=== PATIENT | female | born 1950 | race African-American/Black ===

== ENCOUNTER 2016-09-04 16:33 | Inpatient (IN) | payer OTHER ==
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
[2016-09-04 17:02] VITALS: BMI 18.3
[2016-09-04] MEDS ORDERED: SODIUM CHLORIDE 0.9% 1000 ML INFUS.BAG IV PRN (17:08)
[2016-09-04] MEDS ORDERED: ACETAMINOPHEN 1000 MG/100 ML VIAL (NON FORMULARY) IVPB ONE (17:08)
[2016-09-04] MEDS ORDERED: PIPERACILLIN/TAZOB 3.375 GM/50 ML PRE-DOCKED IV ONE (17:09)
[2016-09-04 17:57] LABS: BASOPHIL 0.3 % (0-2.0); EOSINOPHIL 0.3 % (0-4.5); MCH 26.9 pg (25.7-33.7); MCHC 31.8 g/dl (32.0-36.0); MEAN CELL VOLUME 84.7 fl (80-96); MEAN PLT VOLUME 8.4 fl (7.5-11.1); NEUTROPHILS 89.3 % (42.8-82.8); PLATELET COUNT 228 K/MM3 (134-434); RDW 16.2 % (11.6-15.6); WHITE BLOOD COUNT 11.1 K/mm3 (4.0-10.0)
[2016-09-04 18:15] LABS: VENOUS PH 7.37 (7.32-7.42)
[2016-09-04 18:17] LABS: INR 1.31 (0.82-1.09); PROTHROMBIN TIME (PATIENT) 14.5 SEC (9.98-11.88)
[2016-09-04 18:19] LABS: ACTIVATED PTT 36.5 SECONDS (26.9-34.4)
[2016-09-04 18:34] LABS: ALBUMIN 2.9 g/dl (3.4-5.0); ANION GAP 10 (8-16); BILIRUBIN,TOTAL 0.3 mg/dL (0.2-1.0); CALCIUM 9.2 mg/dL (8.5-10.1); CO2 27 mmol/L (21-32); COCKROFT - GAULT 56.6015; CREATININE 0.7 mg/dL (0.55-1.02); GLUCOSE,RANDOM 121 mg/dL (74-106); SGOT/AST 20 U/L (15-37); TOT PROT 7.1 g/dl (6.4-8.2)
[2016-09-04 18:41] LABS: URINE APPEARANCE CLOUDY; URINE BILIRUBIN NEGATIVE (NEGATIVE); URINE COLOR YELLOW; URINE GLUCOSE (UA) NEGATIVE (NEGATIVE); URINE KETONE NEGATIVE (NEGATIVE); URINE NITRITE POSITIVE (NEGATIVE); URINE UROBILINOGEN NEGATIVE E.U./dl (0.2-1.0)
[2016-09-04 18:43] LABS: ALK PHOS 86 U/L (45-117); SGPT/ALT 16 U/L (12-78); TROPONIN I < 0.02 ng/ml (0.00-0.05)
[2016-09-04 18:50] LABS: URINE BLOOD 1+ (NEGATIVE); URINE LEUK ESTERASE 2+ (NEGATIVE); URINE PROTEIN 1+ (NEGATIVE)
[2016-09-04 18:53] LABS: URINE BACTERIA RARE /hpf (NONE SEEN); URINE MUCUS RARE; URINE RBC 4 /hpf (0-3); URINE WBC 112 /hpf (3-5)
[2016-09-04] MEDS ORDERED: oxyCODONE HCL 5 MG TABLET PO ONE (19:09)
[2016-09-04] MEDS ORDERED: SODIUM CHLORIDE 1,000 ML IV STA (19:16)
[2016-09-04] MEDS ORDERED: oxyCODONE HCL 5 MG TABLET ONE (20:21)
[2016-09-04] MEDS ORDERED: LEVOTHYROXINE NA 88 MCG TABLET (FP) PO ONE (21:50)
[2016-09-04] MEDS ORDERED: ALBUTEROL SO4 2.5/IPRATROPIUM 0.5 INH SOL 3 ML VIAL.NEB. NEB PRN (21:50)
[2016-09-04] MEDS ORDERED: OXYCODONE/APAP 5/325MG COMBO TABLET PO PRN (21:50)
[2016-09-04] MEDS ORDERED: GABAPENTIN 100 MG CAPSULE (FP) ONE (22:19)
[2016-09-04] MEDS: GABAPENTIN 100 MG CAPSULE (FP) PO SCH (23:04)
[2016-09-05 01:17] LABS: MCH 26.3 pg (25.7-33.7); MCHC 30.6 g/dl (32.0-36.0); MEAN CELL VOLUME 85.8 fl (80-96); PLATELET COUNT 186 K/MM3 (134-434); RDW 16.3 % (11.6-15.6); WHITE BLOOD COUNT 9.8 K/mm3 (4.0-10.0)
[2016-09-05 01:39] LABS: ALBUMIN 2.5 g/dl (3.4-5.0); ALK PHOS 74 U/L (45-117); ANION GAP 11 (8-16); BILIRUBIN,TOTAL 0.3 mg/dL (0.2-1.0); CO2 22 mmol/L (21-32); COCKROFT - GAULT 56.6015; CREATININE 0.7 mg/dL (0.55-1.02); GLUCOSE,RANDOM 196 mg/dL (74-106); SGOT/AST 16 U/L (15-37); SGPT/ALT 13 U/L (12-78)
[2016-09-05] MEDS: oxyCODONE HCL 5 MG TABLET PO PRN ×5 (03:11→21:37)
[2016-09-05] MEDS: GABAPENTIN 100 MG CAPSULE (FP) PO SCH ×3 (05:43→21:33)
--- NOTE | 2016-09-05 09:09 | PN ---
Progress Note (short form) - Note Progress Note: ID Full note dictated Alert NAD Here recently May Selected Entries 09/04/16 09/05/16 16:35 02:39 Temperature 103.0 F H 98.7 F Pulse Rate 98 H Respiratory 20 Rate Blood Pressure 88/51 Microbiology Laboratory Tests 09/04/16 09/04/16 09/04/16 17:50 17:50 18:45 WBC 11.1 H D Hgb Hct Plt Count BUN Creat Clearance w eGFR Lactic Acid 2.0 Ur Leukocyte Esterase 2+ H Urine RBC 4 Urine WBC 112 09/04/16 09/04/16 23:19 23:19 WBC 9.8 Hgb 9.1 L D Hct 29.8 L Plt Count 186 BUN 13 Creat Clearance w eGFR > 60 Lactic Acid Ur Leukocyte Esterase Urine RBC Urine WBC Assessment Urostomy Urinary tract infection Decubitus ulcer care Fever Quadriplesia Plan Continue Zosyn pending final c/s Bety ESTRELLA Problem List - Problems (1) Urinary tract infection Code(s): N39.0 - URINARY TRACT INFECTION, SITE NOT SPECIFIED Qualifiers: Urinary tract infection type: catheter-associated UTI Indwelling urinary catheter type: cystostomy catheter Encounter type: initial encounter Qualified Code(s): T83.510A - Infection and inflammatory reaction due to cystostomy catheter, initial encounter; N39.0 - Urinary tract infection, site not specified (2) Quadriplegia following spinal cord injury Code(s): G82.50 - QUADRIPLEGIA, UNSPECIFIED (3) Attention to urostomy Code(s): Z43.6 - ENCOUNTER FOR ATTN TO OTH ARTIF OPENINGS OF URINARY TRACT
[2016-09-05] MEDS: ACETAMINOPHEN 325 MG TABLET (FP) PO PRN ×2 (09:51→21:35)
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
[2016-09-05] MEDS: PIPERACILLIN/TAZOB 4.5 GM 100 ML IVPB SCH ×2 (10:09→17:47)
--- NOTE | 2016-09-05 10:32 | EKG ---
Test Reason : Blood Pressure : / mmHG Vent. Rate : 094 BPM Atrial Rate : 094 BPM P-R Int : 134 ms QRS Dur : 072 ms QT Int : 318 ms P-R-T Axes : 068 046 058 degrees QTc Int : 397 ms NORMAL SINUS RHYTHM POSSIBLE LEFT ATRIAL ENLARGEMENT BORDERLINE ECG WHEN COMPARED WITH ECG OF 31-JUL-2015 21:46, VENT. RATE HAS INCREASED BY 35 BPM T WAVE AMPLITUDE HAS DECREASED IN LATERAL LEADS Confirmed by CORRINA BRO MD ([id number]) on 09/05/2016 10:31:46 AM Referred By: Confirmed By:CORRINA BRO MD
[2016-09-05] MEDS: COLLAGENASE CLOSTRIDIUM HIST. 30 GRAMS TUBE TP SCH (14:01)
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
[2016-09-06] MEDS: PIPERACILLIN/TAZOB 4.5 GM 100 ML IVPB SCH ×2 (01:26→09:23)
[2016-09-06] MEDS: ACETAMINOPHEN 325 MG TABLET (FP) PO PRN ×2 (03:48→09:25)
[2016-09-06] MEDS: oxyCODONE HCL 5 MG TABLET PO PRN ×2 (03:49→09:23)
[2016-09-06] MEDS: GABAPENTIN 100 MG CAPSULE (FP) PO SCH ×2 (06:39→13:22)
[2016-09-06] MEDS: COLLAGENASE CLOSTRIDIUM HIST. 30 GRAMS TUBE TP SCH (09:23)
[2016-09-06 12:13] VITALS: BP 95/48; PULSE 74; TEMP 98.8
--- NOTE | 2016-09-06 13:24 | DS ---
Physical Examination Vital Signs: Vital Signs Temperature 98.8 F 09/06/16 09:00 Pulse Rate 74 09/06/16 09:00 Respiratory Rate 20 09/06/16 09:00 Blood Pressure 95/48 09/06/16 09:00 O2 Sat by Pulse Oximetry (%) 99 09/06/16 09:00 Findings/Remarks: daughter bedside feeling better denies fever/chills, +appetite Constitutional: Yes: No Distress Eyes: Yes: WNL HENT: Yes: WNL Neck: Yes: WNL Cardiovascular: Yes: WNL Respiratory: Yes: WNL Gastrointestinal: Yes: WNL Renal/: Yes: Baldwin Present, Incontinence Musculoskeletal: Yes: Muscle Weakness Extremities: Yes: Deformity Edema: No Integumentary: Yes: Pressure Ulcer, Other Wound/Incision: Yes: Dressing Dry and Intact Neurological: Yes: Pre-Existing Deficit, Unsteady Gait ...Motor Strength: LLE, RLE Psychiatric: Yes: Other Labs: CBC, BMP 09/04/16 23:19 09/04/16 23:19 Discharge Summary Reason For Visit: URINARY TRACT INFECTION Current Active Problems Attention to urostomy (Acute) Sacral decubitus ulcer, stage IV (Acute) Sepsis (Acute) Urinary tract infection (Acute) Procedures: Principal: cxr/labs/cx Hospital Course: admitted iv abx, improved, deciding on po abx per infectious disease, dc home with abx therapy, follow up next week with [facility] for sacral ulcer Condition: Fair - Instructions Diet, Activity, Other Instructions: see dr mario in 1 week as out patient diet reg Referrals: Stephanie Peter [Primary Care Provider] - Disposition: HOME - Home Medications Comprehensive Discharge Medication List: Ambulatory Orders Levothyroxine [Synthroid -] 88 mcg PO DAILY@0700 #0 tablet 09/25/12 Gabapentin [Neurontin] 100 mg PO BID 09/07/13 Oxycodone HCl/Acetaminophen [Percocet 5-325 mg Tablet] 1 tab PO BID 09/07/13 Albuterol 2.5/Ipratropium 0.5 [Duoneb -] 1 amp NEB Q4H PRN #0 amp 08/03/15 Collagenase Clostridium Hist. [Santyl] 1 applic TP DAILY #90 applic 11/08/15
--- NOTE | 2016-09-06 13:42 | PN ---
Progress Note, Physician Chief Complaint: ID Doing well Zosyn - Current Medication List Current Medications: Active Medications Acetaminophen (Tylenol -) 650 mg PO Q6H PRN PRN Reason: PAIN Last Admin: 09/06/16 09:25 Dose: 650 mg Albuterol/Ipratropium (Duoneb -) 1 amp NEB Q6H PRN PRN Reason: SHORTNESS OF BREATH Collagenase (Santyl -) 1 applic TP DAILY [facility] Last Admin: 09/06/16 09:23 Dose: Not Given Gabapentin (Neurontin -) 100 mg PO TID CHRIS Last Admin: 09/06/16 13:22 Dose: 100 mg Piperacillin Sod/Tazobactam Sod (Zosyn 4.5gm Ivpb (Pre-Docked)) 100 mls @ 200 mls/hr IVPB Q8H-IV CHRIS PRN Reason: Protocol Last Admin: 09/06/16 09:23 Dose: 200 mls/hr Oxycodone HCl (Roxicodone -) 10 mg PO Q6H PRN PRN Reason: PAIN Last Admin: 09/06/16 09:23 Dose: 10 mg Oxycodone/Acetaminophen (Percocet 5/325 -) 2 combo PO Q6H PRN PRN Reason: PAIN LEVEL 6-10 Sodium Chloride (Normal Saline -) 500 ml IV Q20M PRN PRN Reason: MAP<65mm Hg OR SBP <90 - Objective Vital Signs: Vital Signs Temperature 98.8 F 09/06/16 09:00 Pulse Rate 74 09/06/16 09:00 Respiratory Rate 20 09/06/16 09:00 Blood Pressure 95/48 09/06/16 09:00 O2 Sat by Pulse Oximetry (%) 99 09/06/16 09:00 Constitutional: Yes: No Distress Neck: Yes: WNL, Supple Cardiovascular: Yes: S1, S2 Respiratory: Yes: WNL, Regular, CTA Bilaterally Gastrointestinal: Yes: Soft. No: Tenderness Labs: CBC, BMP 09/04/16 23:19 09/04/16 23:19 INR, PTT INR 1.31 (0.82-1.09) H 09/04/16 17:50 Problem List - Problems (1) Urinary tract infection Code(s): N39.0 - URINARY TRACT INFECTION, SITE NOT SPECIFIED Qualifiers: Urinary tract infection type: catheter-associated UTI Indwelling urinary catheter type: cystostomy catheter Encounter type: initial encounter Qualified Code(s): T83.510A - Infection and inflammatory reaction due to cystostomy catheter, initial encounter; N39.0 - Urinary tract infection, site not specified (2) Quadriplegia following spinal cord injury Code(s): G82.50 - QUADRIPLEGIA, UNSPECIFIED (3) Attention to urostomy Code(s): Z43.6 - ENCOUNTER FOR ATTN TO OTH ARTIF OPENINGS OF URINARY TRACT Assessment/Plan Microbiology 09/04/16 18:30 Urine - Urine - Catheterized Urine Culture - Preliminary Lactose Fermenting Neg Bacilli Group D Strep Or Entero Coccus 09/04/16 17:50 Blood - Peripheral Venous Blood Culture - Preliminary NO GROWTH OBTAINED AFTER 24 HOURS, INCUBATION TO CONTINUE FOR 4 DAYS. 09/04/16 17:50 Blood - Peripheral Venous Blood Culture - Preliminary NO GROWTH OBTAINED AFTER 24 HOURS, INCUBATION TO CONTINUE FOR 4 DAYS. Laboratory Tests 09/04/16 09/04/16 23:19 23:19 WBC 9.8 Hgb 9.1 L D Hct 29.8 L Plt Count 186 BUN 13 Creatinine 0.7 Assessment UTI mixed shantel/ Fever resolved Plan Discharge on oral meds Combination of Keflex Amox for 5 days Bety ESTRELLA
[2016-09-06] MEDS ORDERED: CEPHALEXIN MONOHYDRATE 500 MG CAPSULE (UD) PO SCH (14:00)
[2016-09-06] MEDS ORDERED: AMOXICILLIN 500 MG CAPSULE (FP) PO SCH (14:00)
== END 2016-09-06 16:08 | disposition home or self-care (01) | DRG 698 ==
LOC: JER 16:33 → JERBED 22:17 → J8W 09-05 02:38
PROVIDERS: ADMIT Family Medicine; ATTEND Family Medicine
DX: T83.510A Infection and inflammatory reaction due to cystostomy catheter, initial encounter (principal); G82.50 Quadriplegia, unspecified; A41.9 Sepsis, unspecified organism; L89.154 Pressure ulcer of sacral region, stage 4; C85.90 Non-Hodgkin lymphoma, unspecified, unspecified site; Y83.3 Surgical operation with formation of external stoma as the cause of abnormal reaction of the patient, or of later complication, without mention of misadventure at the time of the procedure; Y92.009 Unspecified place in unspecified non-institutional (private) residence as the place of occurrence of the external cause; K21.9 Gastro-esophageal reflux disease without esophagitis; E03.9 Hypothyroidism, unspecified; E11.9 Type 2 diabetes mellitus without complications; J45.909 Unspecified asthma, uncomplicated; L89.611 Pressure ulcer of right heel, stage 1; L89.892 Pressure ulcer of other site, stage 2
CPT/HCPCS: 36415; 71010-TC; 80053; 81003; 81015; 82550; 82803; 83605; 84484; 85025; 85027; 85610; 85730; 86850; 86900; 86901; 87040; 87086; 87186; 93005; 93010; 99284-25

== ENCOUNTER 2017-12-08 11:02 | Day surgery (SDC) | payer OTHER ==
[2017-12-05 18:33] VITALS: BMI 23.0
[2017-12-08 12:19] VITALS: TEMP 98.5
[2017-12-08] MEDS ORDERED: MIDAZOLAM HCL 2 MG/2 ML SINGLE DOSE VIAL ONE (14:12)
[2017-12-08] MEDS ORDERED: fentaNYL CITRATE 250 MCG/5 ML VIAL ONE (14:24)
--- NOTE | 2017-12-08 14:38 | OP ---
Operative Note - Note: Operative Date: 12/08/17 Pre-Operative Diagnosis: Right renal stone Findings: Right ESWL 10 mm Right upper pole kidney stone Surgeon: Tim Tate Anesthesia: Fractional Estimated Blood Loss (mls): 0 Drains, Volume Out (mls): 1 (Right JJ stent)
--- NOTE | 2017-12-08 14:48 | EKG ---
Test Reason : Blood Pressure : / mmHG Vent. Rate : 073 BPM Atrial Rate : 073 BPM P-R Int : 138 ms QRS Dur : 070 ms QT Int : 350 ms P-R-T Axes : 000 000 017 degrees QTc Int : 385 ms NORMAL SINUS RHYTHM NORMAL ECG WHEN COMPARED WITH ECG OF 03-NOV-2017 12:11, NO SIGNIFICANT CHANGE WAS FOUND Confirmed by MISTY SAHA MD ([id number]) on 12/08/2017 2:47:57 PM Referred By: Tim Tate Confirmed By:MISTY SAHA MD
[2017-12-08] MEDS ORDERED: ONDANSETRON 4 MG/2 ML VIAL IVPUSH PRN (15:12)
[2017-12-08 17:06] VITALS: BP 96/60; PULSE 74
--- NOTE | 2017-12-08 21:59 | OP ---
DATE OF OPERATION: 12/08/2017 PREOPERATIVE DIAGNOSIS: Right renal stone. POSTOPERATIVE DIAGNOSIS: Right renal stone. PROCEDURE: Right extracorporeal shock wave lithotripsy. ATTENDING: Ashanti Harvey MD ANESTHESIA: General. DESCRIPTION OF OPERATION: The patient was brought in the operating room and placed in supine position on the operating room table. Ultrasonography and fluoroscopy were then performed. A 10-mm right upper pole stone was identified. Anesthesia and preoperative antibiotics were then administered. Shock wave lithotripsy was then performed; 3000 impulses at 18 joules of power were administered to the stone with excellent fragmentation of the stone noted. There were no complications noted. ASHANTI HARVEY M.D. /[id number]
== END 2017-12-08 17:00 | disposition home or self-care (01) ==
LOC: JASU-SURG 11:02
PROVIDERS: ATTEND Urology
PROC: 0TF3XZZ Fragmentation in Right Kidney Pelvis, External Approach (ICD-10-PCS; principal; 2017-12-08 12:30)
DX: N20.0 Calculus of kidney (principal)
CPT/HCPCS: 93005; 93010

== ENCOUNTER 2017-12-20 15:17 | Inpatient (IN) | payer OTHER ==
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
[2017-12-20] MEDS ORDERED: ACETAMINOPHEN 1000 MG/100 ML VIAL (NON FORMULARY) IVPB ONE (16:31)
[2017-12-20] MEDS ORDERED: SODIUM CHLORIDE 1,000 ML IV STA (16:31)
[2017-12-20] MEDS ORDERED: ACETAMINOPHEN INJECTION 100 ML IVPB ONE (16:45)
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
[2017-12-20 16:47] LABS: BASO % 0.7 % (0-2.0); EOS % 2.1 % (0-4.5); HEMATOCRIT 32.7 % (32.4-45.2); HEMOGLOBIN 10.8 GM/dL (10.7-15.3); LYMPH % 9.9 % (8-40); MCH 28.9 pg (25.7-33.7); MCHC 33.1 g/dl (32.0-36.0); MEAN CELL VOLUME 87.4 fl (80-96); MEAN PLT VOLUME 8.8 fl (7.5-11.1); MONO % 4.5 % (3.8-10.2); NEUT % 82.8 % (42.8-82.8); PLATELET COUNT 273 K/MM3 (134-434); RBC 3.75 M/mm3 (3.60-5.2); RDW 13.5 % (11.6-15.6)
[2017-12-20 16:55] LABS: URINE APPEARANCE TURBID; URINE BILIRUBIN NEGATIVE (<2.0 mg/dL); URINE COLOR YELLOW; URINE GLUCOSE (UA) 3+ (NEGATIVE); URINE KETONE NEGATIVE (NEGATIVE); URINE NITRITE POSITIVE (NEGATIVE); URINE UROBILINOGEN NEGATIVE mg/dL (0.2-1.0)
[2017-12-20 17:03] LABS: URINE LEUK ESTERASE 2+ (NEGATIVE); URINE PROTEIN 2+ (NEGATIVE)
[2017-12-20 17:05] LABS: URINE BACTERIA MANY /hpf (NONE SEEN)
[2017-12-20 17:12] LABS: INR 1.27 (0.83-1.09); PROTHROMBIN TIME (PATIENT) 14.3 SEC (9.7-13.0)
[2017-12-20] MEDS ORDERED: VANCOMYCIN 1 GM PREMIX - 1 GM/200 ML BAG IVPB ONE (17:13)
[2017-12-20] MEDS ORDERED: PIPERACILLIN/TAZOB 3.375 GM 3.375 GM in DEXTROSE 5%-WATER - 50 ML IVPB ONE (17:13)
[2017-12-20 17:15] LABS: ACTIVATED PTT 32.2 SECONDS (25.2-36.5)
[2017-12-20 17:19] LABS: ALBUMIN 3.1 g/dl (3.4-5.0); ALK PHOS 124 U/L (45-117); ANION GAP 9 MMOL/L (8-16); BILIRUBIN,TOTAL 0.2 mg/dL (0.2-1); BLOOD UREA NITROGEN 16 mg/dL (7-18); CALCIUM 9.4 mg/dL (8.5-10.1); CHLORIDE 104 mmol/L (98-107); CO2 26 mmol/L (21-32); CREATININE 0.8 mg/dL (0.55-1.3); POTASSIUM 4.8 mmol/L (3.5-5.1); SGOT/AST 49 U/L (15-37); SGPT/ALT 24 U/L (13-61); SODIUM 140 mmol/L (136-145)
[2017-12-20 17:20] LABS: GLUCOSE,RANDOM 346 mg/dL (74-106)
[2017-12-20] MEDS ORDERED: PIPERACILLIN/TAZOB 3.375 GM 3.375 GM/50 ML BAG IVPB ONE (17:44)
[2017-12-20] MEDS ORDERED: morphine CARPU-JECT 4 MG/1 ML DISP.SYRIN IVPUSH ONE (17:51)
[2017-12-20] MEDS ORDERED: VANCOMYCIN 1 GRAM (PRE-DOCKED) 1,000 MG/250 ML BAG IVPB ONE (18:04)
[2017-12-20] MEDS ORDERED: morphine SULFATE 4 MG/ML VIAL ONE (18:23)
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
--- NOTE | 2017-12-20 20:40 | HP ---
CHIEF COMPLAINT: fever, chills PCP: HISTORY OF PRESENT ILLNESS: Patient is a 67 year old female with history of hypertension, DM, 10mm right upper pole kidney stone s/p ESWL, urethral stricture for surgical repair 2017, and paraplegia presents for complaint of fevers and chills for the past week, worsening over past three days. Admits that for past week, her urine has turned from light yellow to more "cloudy" and "pink" in color. She urinates into urostomy bag, and ocassionaly has to put pressure onto her lower abdomen to fully expel the urine. Further admits to weakness in her b/l upper arms and generalized malaise. At baseline she is unable to move her lower extremities b/ l. She ambulates with aid of motorized wheelchair. ER course was notable for: (1) Vancomycin 1gm, Zosyn 3.375gm (2) Ofirmev, Morphine, Benadryl (3) IV NS Recent Travel: PAST MEDICAL HISTORY: PAST SURGICAL HISTORY: Social History: Smoking: former smoker 1 PPD for 20 years. Quit 30 years ago. Alcohol: admits one drink socially. Drugs: denies Family History: Allergies iodine-123 Allergy (Severe, Verified 12/20/17 15:46) IV CONTRAST Allergy (Uncoded 12/20/17 15:46) HOME MEDICATIONS: Home Medications Medication Instructions Recorded Levothyroxine [Synthroid -] 88 mcg PO DAILY@0700 #0 tablet 09/25/12 Gabapentin [Neurontin] 100 mg PO BID 09/07/13 Oxycodone HCl/Acetaminophen 1 tab PO QID 09/07/13 [Percocet 5-325 mg Tablet] Albuterol 2.5/Ipratropium 0.5 1 amp NEB Q6H PRN #0 amp 09/06/16 [Duoneb -] Diazepam [Valium] 10 mg PO HS 11/04/17 Multivitamin [One Daily] 1 each PO DAILY 12/05/17 REVIEW OF SYSTEMS CONSTITUTIONAL: Admits: fever, chills, diaphoresis, generalized weakness, malaise HEENT: Absent: rhinorrhea, nasal congestion, throat pain, throat swelling, difficulty swallowing, mouth swelling, ear pain, eye pain, visual changes CARDIOVASCULAR: Absent: chest pain, syncope, palpitations, irregular heart rate, lightheadedness , peripheral edema RESPIRATORY: Absent: cough, shortness of breath, dyspnea with exertion, orthopnea, wheezing, stridor, hemoptysis GASTROINTESTINAL: Absent: abdominal pain, abdominal distension, nausea, vomiting, diarrhea, constipation, melena, hematochezia GENITOURINARY: Absent: dysuria, frequency, urgency, hesitancy, hematuria, flank pain, genital pain SKIN: Admits: sacral ulcer. HEMATOLOGIC/IMMUNOLOGIC: Admits: frequent urinary tract infections. Absent: easy bleeding, easy bruising , lymphadenopathy. ENDOCRINE: Absent: unexplained weight gain, unexplained weight loss. NEUROLOGIC: Admits: diminished sensation in 4th finger of right hand. Absent: headache, seizure, mental status changes. PHYSICAL EXAMINATION Vital Signs - 24 hr 12/20/17 12/20/17 12/20/17 15:46 18:15 20:07 Temperature 99.3 F 100.4 F H Pulse Rate 91 H Pulse Rate [ Right Radial] Respiratory 16 Rate Blood Pressure 118/83 Blood Pressure [Left Arm] O2 Sat by Pulse 99 95 Oximetry (%) 12/20/17 20:25 Temperature 99.4 F Pulse Rate Pulse Rate [ 64 Right Radial] Respiratory 16 Rate Blood Pressure Blood Pressure 95/62 [Left Arm] O2 Sat by Pulse 98 Oximetry (%) GENERAL: Awake, alert, and fully oriented, in no acute distress. HEAD: Normal with no signs of trauma. EYES: Pupils equal, round and sluggishly reactive to light. Extraocular movements intact, sclera anicteric, conjunctiva clear. No lid lag. EARS, NOSE, THROAT: Ears normal, nares patent, oropharynx clear without exudates. Moist mucous membranes. NECK: Supple without lymphadenopathy. LUNGS: Breath sounds equal, clear to auscultation bilaterally. No wheezes, and no crackles. No accessory muscle use. HEART: Regular rate and rhythm, normal S1 and S2 without murmur, rub or gallop. ABDOMEN: Soft, nontender, not distended, normoactive bowel sounds, no guarding, no rebound, no masses. No hepatomegaly or splenomegaly. MUSCULOSKELETAL: No range of motion in b/l lower extremities. UPPER EXTREMITIES: 2+ radial pulses, warm, well-perfused. Strength 3/5 b/l upper extremities. LOWER EXTREMITIES: 1+ dorsalis pedis pulses. No edema b/l. No sensation in b/l lower extremities. Strength 0/5 b/l lower extremities. NEUROLOGICAL: Cranial nerves II-XII intact. Normal speech. PSYCHIATRIC: Appropriate mood and affect. Cooperative. SKIN: Large sacral ulcer (stage 3-4), with significant surrounding edema. Laboratory Results - last 24 hr 12/20/17 12/20/17 12/20/17 16:15 16:15 16:15 WBC 8.0 RBC 3.75 Hgb 10.8 Hct 32.7 MCV 87.4 MCH 28.9 MCHC 33.1 RDW 13.5 Plt Count 273 MPV 8.8 Absolute Neuts (auto) 6.7 Neutrophils % 82.8 Lymphocytes % 9.9 D Monocytes % 4.5 Eosinophils % 2.1 D Basophils % 0.7 Nucleated RBC % 0 PT with INR 14.30 H INR 1.27 H PTT (Actin FS) 32.2 Sodium Potassium Chloride Carbon Dioxide Anion Gap BUN Creatinine Creat Clearance w eGFR Random Glucose Lactic Acid Calcium Total Bilirubin AST ALT Alkaline Phosphatase Troponin I Total Protein Albumin Urine Color Yellow Urine Appearance Turbid Urine pH 5.0 D Ur Specific [place] 1.018 Urine Protein 2+ H Urine Glucose (UA) 3+ H Urine Ketones Negative Urine Blood 3+ H Urine Nitrite Positive Urine Bilirubin Negative Urine Urobilinogen Negative Ur Leukocyte Esterase 2+ H Urine WBC (Auto) 687 Urine RBC (Auto) 103 Urine Bacteria Many 12/20/17 12/20/17 12/20/17 16:15 16:15 16:15 WBC RBC Hgb Hct MCV MCH MCHC RDW Plt Count MPV Absolute Neuts (auto) Neutrophils % Lymphocytes % Monocytes % Eosinophils % Basophils % Nucleated RBC % PT with INR INR PTT (Actin FS) Sodium 140 Potassium 4.8 Chloride 104 Carbon Dioxide 26 Anion Gap 9 BUN 16 Creatinine 0.8 Creat Clearance w eGFR > 60 Random Glucose 346 H* Lactic Acid 2.6 H* Calcium 9.4 Total Bilirubin 0.2 AST 49 H ALT 24 Alkaline Phosphatase 124 H Troponin I < 0.02 Total Protein 8.0 Albumin 3.1 L Urine Color Urine Appearance Urine pH Ur Specific [place] Urine Protein Urine Glucose (UA) Urine Ketones Urine Blood Urine Nitrite Urine Bilirubin Urine Urobilinogen Ur Leukocyte Esterase Urine WBC (Auto) Urine RBC (Auto) Urine Bacteria 12/20/17 18:08 WBC RBC Hgb Hct MCV MCH MCHC RDW Plt Count MPV Absolute Neuts (auto) Neutrophils % Lymphocytes % Monocytes % Eosinophils % Basophils % Nucleated RBC % PT with INR INR PTT (Actin FS) Sodium Potassium Chloride Carbon Dioxide Anion Gap BUN Creatinine Creat Clearance w eGFR Random Glucose Lactic Acid 1.4 Calcium Total Bilirubin AST ALT Alkaline Phosphatase Troponin I Total Protein Albumin Urine Color Urine Appearance Urine pH Ur Specific [place] Urine Protein Urine Glucose (UA) Urine Ketones Urine Blood Urine Nitrite Urine Bilirubin Urine Urobilinogen Ur Leukocyte Esterase Urine WBC (Auto) Urine RBC (Auto) Urine Bacteria ASSESSMENT/PLAN: Patient is a 67 year old female with history of hypertension, DM, kidney stone s /p ESWL, urethral stricture for surgical repair 12/22/2017, and paraplegia presents for complaint of fevers and chills for the past week. Sepsis -HR 91 upon admission, Febrile at 100.4F rectal -Likely secondary to healthcare associated UTI vs sacral ulcer, vs. finger lesion UA showed 2+ protein, 3+ glucose, 3+ blood, 2+ leukocyte esterase, + nitrites, 687 WBC, 103 RBC, many bacteria -Patient received 1gram Vancomycin IV in ED -Ertapenem 1 gram one time dose -F/U ID consult (Dr. Kruger) -F/U Urology consult (Dr. Tate) -F/U Lactic acid -F/U blood cultures -F/U urine cultures Sacral decubitus ulcer -F/U wound care consult (Dr. Gaona) -F/U ID consult (Dr. Kruger) -Encourage maintaining the area clean, with frequent turning Diabetes -Hold home medications -ISS -BGM ACHS FEN -IV normal salien at 100mL/ hour -Electrolytes within normal limits. Follow CMP -Diabetic diet Prophylaxis -Lovenox 40mg SQ daily Disposition -Admit to medical surgical floor for care Visit type - Emergency Visit Emergency Visit: Yes ED Registration Date: 12/20/17 Care time: The patient presented to the Emergency Department on the above date and was hospitalized for further evaluation of their emergent condition. - New Patient This patient is new to me today: Yes Date on this admission: 12/21/17 - Critical Care Critical Care patient: No Hospitalist Screening - Colonoscopy Questionnaire Colonoscopy Questionnaire: Colonoscopy Questionnaire - Patient: 50 - 75 years old and never had a screening colonoscopy: Unknown History of colon or rectal polyps, or CA: Unknown History of IBD, Crohn's disease or UC: Unknown History of abdominal radiation therapy as a child: Unknown - Relative: 1 with colon or rectal CA, or polyps at age 60 or younger: Unknown Colon or rectal CA diagnosed at age 45 or younger: Unknown Multiple relatives with colon or rectal CA: Unknown - Outcome: Screening Result: Negative Screen
[2017-12-20] MEDS ORDERED: MEROPENEM 1 GM in DEXTROSE 5%-WATER 100 ML IVPB ONE (22:45)
[2017-12-20] MEDS: SODIUM CHLORIDE 1,000 ML IV SCH (23:25)
[2017-12-21] MEDS ORDERED: ACETAMINOPHEN 325 MG TABLET (FP) PO ONE (00:05)
[2017-12-21] MEDS ORDERED: MORPHINE SULFATE 2 MG/ML VIAL IM ONE (05:51)
[2017-12-21] MEDS ORDERED: HEPARIN NA (PORCINE) 5,000 UNITS/ML 1ML VIAL SQ SCH (06:00)
[2017-12-21] MEDS: INSULIN SLIDING SCALE (NOVOLOG) 1 VIAL SQ SCH ×4 (06:04→21:45)
[2017-12-21 08:52] LABS: ALBUMIN 2.3 g/dl (3.4-5.0); ALK PHOS 97 U/L (45-117); ANION GAP 6 MMOL/L (8-16); BILIRUBIN,TOTAL 0.2 mg/dL (0.2-1); BLOOD UREA NITROGEN 10 mg/dL (7-18); CHLORIDE 109 mmol/L (98-107); CO2 27 mmol/L (21-32); CREATININE 0.7 mg/dL (0.55-1.3); GLUCOSE,RANDOM 267 mg/dL (74-106); MAGNESIUM 1.9 mg/dL (1.8-2.4); PHOSPHOROUS 2.2 mg/dL (2.5-4.9); POTASSIUM 3.9 mmol/L (3.5-5.1); SGOT/AST 28 U/L (15-37); SGPT/ALT 17 U/L (13-61); SODIUM 142 mmol/L (136-145); TOT PROT 6.5 g/dl (6.4-8.2)
[2017-12-21] MEDS ORDERED: FLU VACCINE QUAD 60 MCG/0.5 ML (MDV 18-19) IM ONE (09:00)
[2017-12-21] MEDS ORDERED: MEROPENEM 1 GM in DEXTROSE 5%-WATER 100 ML IVPB ONE (09:13)
[2017-12-21] MEDS ORDERED: PT OWN MED DRAWER 7, Y5N ONE ×3 (09:19→17:41)
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
[2017-12-21 09:29] LABS: HEMATOCRIT 29.7 % (32.4-45.2); HEMOGLOBIN 9.8 GM/dL (10.7-15.3); MCH 28.9 pg (25.7-33.7); MCHC 33.1 g/dl (32.0-36.0); MEAN CELL VOLUME 87.3 fl (80-96); MEAN PLT VOLUME 9.1 fl (7.5-11.1); PLATELET COUNT 242 K/MM3 (134-434); RDW 13.8 % (11.6-15.6)
[2017-12-21] MEDS: oxyCODONE HCL 5 MG TABLET PO PRN ×2 (09:41→15:27)
[2017-12-21] MEDS: DOCUSATE SODIUM 100 MG CAPSULE (FP) PO SCH (09:41)
[2017-12-21] MEDS ORDERED: NAPH,MB-DB/K PH,MBDB POWDER PACKET PO ONE (09:49)
[2017-12-21] MEDS ORDERED: ENOXAPARIN NA (PORCINE) 40 MG/0.4 ML DISP.SYRIN SQ SCH (10:00)
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
[2017-12-21] MEDS: SODIUM CHLORIDE 1,000 ML IV SCH (10:32)
[2017-12-21] MEDS ORDERED: diazePAM 5 MG TABLET PO PRN (11:26)
[2017-12-21] MEDS ORDERED: INSULIN (NOVOLOG) ASPART 100 UNITS/ML 10ML VIAL ONE (12:00)
[2017-12-21] MEDS: VANCOMYCIN 1,000 MG in DEXTROSE 5%-WATER - 250 ML IVPB SCH (12:39)
--- NOTE | 2017-12-21 17:07 | EKG ---
Test Reason : Blood Pressure : / mmHG Vent. Rate : 072 BPM Atrial Rate : 072 BPM P-R Int : 000 ms QRS Dur : 068 ms QT Int : 352 ms P-R-T Axes : 000 005 022 degrees QTc Int : 385 ms POOR DATA QUALITY, INTERPRETATION MAY BE ADVERSELY AFFECTED ACCELERATED JUNCTIONAL RHYTHM ABNORMAL ECG WHEN COMPARED WITH ECG OF 08-DEC-2017 11:34, JUNCTIONAL RHYTHM HAS REPLACED SINUS RHYTHM Confirmed by MD Mark, Lane ([id number]) on 12/21/2017 5:07:07 PM Referred By: Confirmed By:Lane Flores MD
[2017-12-21] MEDS: MEROPENEM 1 GM in DEXTROSE 5%-WATER 100 ML IVPB SCH (17:51)
[2017-12-21] MEDS: GABAPENTIN 100 MG CAPSULE (FP) PO SCH (21:44)
[2017-12-22] MEDS: MEROPENEM 1 GM in DEXTROSE 5%-WATER 100 ML IVPB SCH ×3 (01:21→20:39)
[2017-12-22] MEDS: SODIUM CHLORIDE 1,000 ML IV SCH ×2 (02:05→05:43)
[2017-12-22] MEDS: INSULIN SLIDING SCALE (NOVOLOG) 1 VIAL SQ SCH ×4 (06:08→22:18)
[2017-12-22] MEDS: oxyCODONE HCL 5 MG TABLET PO PRN ×2 (06:33→20:45)
[2017-12-22] MEDS ORDERED: LEVOTHYROXINE NA 75 MCG TABLET (FP) PO SCH (07:00)
[2017-12-22 08:14] LABS: BASO % 0.5 % (0-2.0); EOS % 4.6 % (0-4.5); HEMATOCRIT 30.4 % (32.4-45.2); LYMPH % 12.1 % (8-40); MCH 28.3 pg (25.7-33.7); MCHC 32.9 g/dl (32.0-36.0); MEAN PLT VOLUME 8.5 fl (7.5-11.1); MONO % 4.9 % (3.8-10.2); NEUT % 77.9 % (42.8-82.8); PLATELET COUNT 243 K/MM3 (134-434); RBC 3.53 M/mm3 (3.60-5.2); RDW 13.3 % (11.6-15.6); WHITE BLOOD COUNT 5.8 K/mm3 (4.0-10.0)
[2017-12-22 08:50] LABS: ANION GAP 7 MMOL/L (8-16); BLOOD UREA NITROGEN 6 mg/dL (7-18); CHLORIDE 111 mmol/L (98-107); CO2 25 mmol/L (21-32); CREATININE 0.5 mg/dL (0.55-1.3); GLUCOSE,RANDOM 182 mg/dL (74-106); MAGNESIUM 1.7 mg/dL (1.8-2.4); PHOSPHOROUS 2.9 mg/dL (2.5-4.9); POTASSIUM 3.9 mmol/L (3.5-5.1); SODIUM 142 mmol/L (136-145)
[2017-12-22] MEDS ORDERED: morphine SULFATE 4 MG/ML VIAL IVPUSH PRN (09:11)
[2017-12-22] MEDS ORDERED: oxyCODONE HCL 5 MG TABLET PO PRN (09:12)
[2017-12-22] MEDS ORDERED: MAGNESIUM SULF 50% (8.12 MEQ/2 ML-1 GM VIAL) IVPB ONE (09:44)
[2017-12-22] MEDS ORDERED: MULTIVITAMINS (DAILY MVI) TABLET (FP) PO SCH (10:00)
[2017-12-22] MEDS: DOCUSATE SODIUM 100 MG CAPSULE (FP) PO SCH (10:16)
[2017-12-22] MEDS: GABAPENTIN 100 MG CAPSULE (FP) PO SCH (10:16)
[2017-12-22] MEDS: VANCOMYCIN 1,000 MG in DEXTROSE 5%-WATER - 250 ML IVPB SCH (11:25)
[2017-12-22] MEDS ORDERED: ACETAMINOPHEN INJECTION 100 ML IVPB ONE (13:32)
[2017-12-22] MEDS ORDERED: ONDANSETRON 4 MG/2 ML VIAL IVPUSH PRN ×2 (13:35→14:17)
--- NOTE | 2017-12-22 13:54 | CONSULT ---
Consult - text type - Consultation Consultation Note: CC: urosepsis hpi: Patient with history of urosepsis. Patient presented with fever and chills. Patient with apparent bacteremia. Patient is s/p a right ureteral stent and s/p ESWL. Patient is comfortable PE VSS;afeb abd- mild CVAT imp urosepsis s/p right stent plan patient is emergently taken to the OR for evaluation of right kidney
--- NOTE | 2017-12-22 13:56 | OP ---
Operative Note - Note: Operative Date: 12/22/17 Pre-Operative Diagnosis: right hydronephrosis s/p stent s/p eswl Operation: right retrograde pyelogram and right stent removal Findings: right hydronephrosis with adequate drainage of right kidney after stent removal Post-Operative Diagnosis: Same as Pre-op Surgeon: Tim Tate Anesthesia: Fractional
[2017-12-22] MEDS ORDERED: diazePAM 5 MG TABLET PO PRN (14:17)
[2017-12-22] MEDS ORDERED: SODIUM CHLORIDE 1,000 ML IV SCH (14:17)
--- NOTE | 2017-12-22 15:42 | PN ---
Physical Exam: SUBJECTIVE: Patient seen and examined at bedside. She is POD # 0 s/p right retrograde pyelogram and right stent removal. She is draining 300cc pink- colored urine into urostomy bag. Admits generalized body pains and chills. Denies fevers, shortness of breath, chest pain, palpitations, abdominal pain, nausea, vomiting, diarrhea. She has not yet eaten drank anything, or had a bowel movement. OBJECTIVE: Vital Signs Period Temp Pulse Resp BP Sys/Prather Pulse Ox Last 24 Hr 98.8 F-100.3 F 77-86 18-18 108-135/65-91 99 GENERAL: Awake, alert, and fully oriented, in no acute distress. HEAD: Normal with no signs of trauma. EYES: Pupils equal, round and sluggishly reactive to light. Extraocular movements intact, sclera anicteric, conjunctiva clear. No lid lag. EARS, NOSE, THROAT: Ears normal, nares patent, oropharynx clear without exudates. Moist mucous membranes. NECK: Supple without lymphadenopathy. LUNGS: Breath sounds equal, clear to auscultation bilaterally. No wheezes, and no crackles. No accessory muscle use. HEART: Regular rate and rhythm, normal S1 and S2 without murmur, rub or gallop. ABDOMEN: Soft, nontender, not distended, normoactive bowel sounds, no guarding, no rebound, no masses. No hepatomegaly or splenomegaly. Urostomy bag draining yellow urine. No erythema or drainage from insertion site. MUSCULOSKELETAL: No range of motion in b/l lower extremities. UPPER EXTREMITIES: 2+ radial pulses, warm, well-perfused. Strength 3/5 b/l upper extremities, limited due to pain. LOWER EXTREMITIES: 1+ dorsalis pedis pulses. No edema b/l. No sensation in b/l lower extremities. Strength 0/5 b/l lower extremities. NEUROLOGICAL: Cranial nerves II-XII intact. Normal speech. PSYCHIATRIC: Appropriate mood and affect. Cooperative. SKIN: Two sacral ulcers (stage 3-4), with significant surrounding edema. Laboratory Results - last 24 hr 12/21/17 12/21/17 12/22/17 17:50 21:39 05:38 WBC RBC Hgb Hct MCV MCH MCHC RDW Plt Count MPV Absolute Neuts (auto) Neutrophils % Lymphocytes % Monocytes % Eosinophils % Basophils % Nucleated RBC % Sodium Potassium Chloride Carbon Dioxide Anion Gap BUN Creatinine Creat Clearance w eGFR POC Glucometer 115 178 183 Random Glucose Hemoglobin A1c % Calcium Phosphorus Magnesium 12/22/17 12/22/17 12/22/17 07:30 07:30 07:30 WBC 5.8 RBC 3.53 L Hgb 10.0 L Hct 30.4 L MCV 86.0 MCH 28.3 MCHC 32.9 RDW 13.3 Plt Count 243 MPV 8.5 Absolute Neuts (auto) 4.5 Neutrophils % 77.9 Lymphocytes % 12.1 D Monocytes % 4.9 Eosinophils % 4.6 H D Basophils % 0.5 Nucleated RBC % 0 Sodium 142 Potassium 3.9 Chloride 111 H Carbon Dioxide 25 Anion Gap 7 L BUN 6 L Creatinine 0.5 L Creat Clearance w eGFR > 60 POC Glucometer Random Glucose 182 H Hemoglobin A1c % 8.6 H Calcium 8.0 L Phosphorus 2.9 Magnesium 1.7 L Active Medications Generic Name Dose Route Start Last Admin Trade Name Freq PRN Reason Stop Dose Admin Diazepam 5 mg 12/22/17 14:17 Valium - PO Q24H PRN ANXIETY Docusate Sodium 100 mg 12/23/17 10:00 Colace - PO DAILY CHRIS Fentanyl 25 mcg 12/22/17 14:17 Sublimaze Injection - IVPUSH 12/23/17 03:00 [id number] PRN PAIN-PACU ORDER X 4 DOSES ONLY Gabapentin 300 mg 12/22/17 22:00 Neurontin - PO BID CHRIS Meropenem 1 gm/ Dextrose 100 mls @ 200 mls/hr 12/22/17 18:00 IVPB Q8H-IV CHRIS Sodium Chloride 1,000 mls @ 100 mls/hr 12/22/17 14:17 Normal Saline - IV ASDIR CHRIS Vancomycin HCl 1,000 mg/ 250 mls @ 166.667 mls/hr 12/23/17 10:45 Dextrose IVPB Q24H [facility] Protocol Insulin Aspart 1 vial 12/22/17 16:30 Novolog Vial Sliding Scale - SQ ACHS [facility] Protocol Levothyroxine Sodium 75 mcg 12/23/17 07:00 Synthroid - PO DAILY@0700 CHRIS Morphine Sulfate 4 mg 12/22/17 14:17 Morphine Sulfate IVPUSH Q4H PRN PAIN LEVEL 6-10 Multivitamins/Minerals/Vitamin C 1 tab 12/23/17 10:00 Tab-A-Vit - PO DAILY CHRIS Ondansetron HCl 4 mg 12/22/17 14:17 Zofran Injection IVPUSH 12/23/17 03:00 Q6H PRN NAUSEA AND/OR VOMITING Oxycodone HCl 10 mg 12/22/17 14:17 Roxicodone - PO Q4H PRN PAIN LEVEL 1-5 ASSESSMENT/PLAN: Patient is a 67 year old female with history of hypertension, DM, kidney stone s /p ESWL, urethral stricture for surgical repair 12/22/2017, and paraplegia presents for complaint of fevers and chills for the past week. Urosepsis -Likely secondary to healthcare associated UTI vs sacral ulcer, vs. finger lesion UA showed 2+ protein, 3+ glucose, 3+ blood, 2+ leukocyte esterase, + nitrites, 687 WBC, 103 RBC, many bacteria -Lactic acid 1.8 upon admission -ID consult (Dr. Kruger) appreciated: Continue Vancomycin 1gm Q24 hours IV and Meropenem Q8H IV (day 3) -Patient is POD #0 s/p right retrograde pyelogram and right stent removal. -Blood cultures grow presumptine MRSA, coagulase negative Staph -F/U repeat blood cultures -Urine cultures grow coagulase positive Staph, Group D strep/ enterococcus, lactose fermenting gram negative bacilli. -Morphine 4mg Q4H PRN -Oxycodone 10mg Q4H PRN -Zofran 4mg Q6H PRN -F/U cardiac ECHO Anxiety -Valium 5mg PO Q24H PRN Hypothyroidism -Synthroid 0.075mg PO daily Sacral decubitus ulcer -F/U wound care consult (Dr. Gaona) -Encourage maintaining the area clean, with frequent turning -Air mattress accumax pump Diabetes -Hold home medications -ISS -BGM ACHS -Gabapentin 300mg PO BID for neuropathy FEN -IV normal saline at 100mL/ hour -Electrolytes within normal limits. Follow CMP -Diabetic diet Prophylaxis -Holding prophylaxis as patient is s/p right retrograde pyelogram and right stent removal, and draining pink colored urine in urostomy bag. Disposition -Admit to medical surgical floor for care Visit type - Emergency Visit Emergency Visit: Yes ED Registration Date: 12/20/17 Care time: The patient presented to the Emergency Department on the above date and was hospitalized for further evaluation of their emergent condition. - New Patient This patient is new to me today: No - Critical Care Critical Care patient: No - Discharge Referral Referred to [facility] No
[2017-12-22 15:45] VITALS: BMI 24.0
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
--- NOTE | 2017-12-22 17:46 | PN ---
Progress Note (short form) - Note Progress Note: returned from OR no chills stent removed Vital Signs Period Temp Pulse Resp BP Sys/Prather Pulse Ox Last 24 Hr 98.8 F-100.3 F 72-98 13-23 108-161/61-96 97-100 cor-rrr lungs clear abd soft,n+urostomy ext no edema CBC, BMP 12/22/17 07:30 12/22/17 07:30 Current Medications Diazepam (Valium -) 5 mg PO Q24H PRN PRN Reason: ANXIETY Docusate Sodium (Colace -) 100 mg PO DAILY [facility] Fentanyl (Sublimaze Injection -) 25 mcg IVPUSH [id number] PRN PRN Reason: PAIN-PACU ORDER X 4 DOSES ONLY Stop: 12/23/17 03:00 Gabapentin (Neurontin -) 300 mg PO BID [facility] Meropenem 1 gm/ Dextrose 100 mls @ 200 mls/hr IVPB Q8H-IV CHRIS Sodium Chloride (Normal Saline -) 1,000 mls @ 100 mls/hr IV ASDIR CHRIS Last Admin: 12/22/17 16:54 Dose: 100 mls/hr Vancomycin HCl 1,000 mg/ (Dextrose) 250 mls @ 166.667 mls/hr IVPB Q12H [facility]; Protocol Insulin Aspart (Novolog Vial Sliding Scale -) 1 vial SQ ACHS [facility]; Protocol Last Admin: 12/22/17 16:53 Dose: 2 units Levothyroxine Sodium (Synthroid -) 75 mcg PO DAILY@0700 [facility] Morphine Sulfate (Morphine Sulfate) 4 mg IVPUSH Q4H PRN PRN Reason: PAIN LEVEL 6-10 Last Admin: 12/22/17 18:21 Dose: 4 mg Multivitamins/Minerals/Vitamin C (Tab-A-Vit -) 1 tab PO DAILY [facility] Ondansetron HCl (Zofran Injection) 4 mg IVPUSH Q6H PRN PRN Reason: NAUSEA AND/OR VOMITING Stop: 12/23/17 03:00 Oxycodone HCl (Roxicodone -) 10 mg PO Q4H PRN PRN Reason: PAIN LEVEL 1-5 Microbiology 12/20/17 16:15 Blood - Peripheral Venous Blood Culture - Preliminary NO GROWTH OBTAINED AFTER 48 HOURS, INCUBATION TO CONTINUE FOR 3 DAYS. 12/20/17 16:15 Urine - Urine [place] Urine Culture - Preliminary Staphylococcus Latex Coag Pos Group D Strep Or Entero Coccus Lactose Fermenting Neg Bacilli 12/20/17 16:15 Blood - Peripheral Venous Blood Culture - Preliminary Presumptive Mrsa (Pbp2a Pos) Staphylococcus Coagulase Neg a/p bacteremia- mrsa secondary to UTI continue vancomycin and meropenem adjust antibiotics in am repeat blood cultures echo ordered paraplegia callous of the finger unchanged Problem List - Problems (1) Sepsis Code(s): A41.9 - SEPSIS, UNSPECIFIED ORGANISM Qualifiers: Sepsis type: sepsis due to unspecified organism Qualified Code(s): A41.9 - Sepsis, unspecified organism (2) Urinary tract infection Code(s): N39.0 - URINARY TRACT INFECTION, SITE NOT SPECIFIED Qualifiers: Urinary tract infection type: site unspecified Hematuria presence: with hematuria Qualified Code(s): N39.0 - Urinary tract infection, site not specified; R31.9 - Hematuria, unspecified (3) Cellulitis Code(s): L03.90 - CELLULITIS, UNSPECIFIED (4) Nephrolithiasis Code(s): N20.0 - CALCULUS OF KIDNEY
[2017-12-22] MEDS: morphine SULFATE 4 MG/ML VIAL IVPUSH PRN (18:21)
[2017-12-22] MEDS ORDERED: PT OWN MED DRAWER 7, Y5N ONE ×3 (18:28→20:00)
--- NOTE | 2017-12-22 20:29 | OP ---
DATE OF OPERATION: 12/22/2017 PREOPERATIVE DIAGNOSIS: Urosepsis with history of right hydronephrosis status post right stent placement. ATTENDING SURGEON: Ashanti Harvey MD ANESTHESIA: Fractional. PROCEDURE: Right retrograde pyelogram, right ureteral stent removal. DESCRIPTION OF PROCEDURE: The patient is admitted for urosepsis and is brought to the operating room emergently. Patient has been on broad-spectrum antibiotics. The patient is to be evaluated for stent removal. Patient was brought to the operating room and placed in the supine position on the operating room table. Fractional anesthesia was administered. At this point, a retrograde pyelogram was performed with the indwelling stent. Hydronephrosis was noted. There was adequate drainage of the upper collecting system. The distal stent was then cut and noted to release the proximal loop. The stent was then removed and sent for evaluation. Adequate emptying of the upper collecting system was noted; however, there is a hydronephrosis, which is chronic in nature. The patient will be observed without a stent at this time. Patient will be followed conservatively. DISPOSITION: Patient is to the recovery room. ASHANTI HARVEY M.D. [id number]
[2017-12-22] MEDS ORDERED: INSULIN (NOVOLOG) ASPART 100 UNITS/ML 10ML VIAL ONE (22:13)
[2017-12-22] MEDS: GABAPENTIN 300 MG CAPSULE (FP) PO SCH (22:18)
[2017-12-22] MEDS: ACETAMINOPHEN 325 MG TABLET (FP) PO PRN (22:18)
[2017-12-23] MEDS ORDERED: PT OWN MED DRAWER 7, Y5N ONE (01:24)
[2017-12-23] MEDS: VANCOMYCIN 1,000 MG in DEXTROSE 5%-WATER - 250 ML IVPB SCH ×2 (01:28→13:29)
[2017-12-23] MEDS ORDERED: IBUPROFEN 400 MG TABLET (FP) PO ONE (01:34)
[2017-12-23] MEDS: MEROPENEM 1 GM in DEXTROSE 5%-WATER 100 ML IVPB SCH ×3 (03:23→17:03)
[2017-12-23] MEDS: oxyCODONE HCL 5 MG TABLET PO PRN ×3 (03:55→16:29)
[2017-12-23] MEDS: ACETAMINOPHEN 325 MG TABLET (FP) PO PRN ×2 (03:56→21:54)
[2017-12-23] MEDS: LEVOTHYROXINE NA 75 MCG TABLET (FP) PO SCH (06:41)
[2017-12-23] MEDS: INSULIN SLIDING SCALE (NOVOLOG) 1 VIAL SQ SCH ×4 (06:41→21:56)
[2017-12-23 07:01] LABS: HEMATOCRIT 28.4 % (32.4-45.2); HEMOGLOBIN 9.2 GM/dL (10.7-15.3); MCH 28.1 pg (25.7-33.7); MCHC 32.3 g/dl (32.0-36.0); MEAN PLT VOLUME 8.3 fl (7.5-11.1); PLATELET COUNT 197 K/MM3 (134-434); RBC 3.26 M/mm3 (3.60-5.2); WHITE BLOOD COUNT 9.1 K/mm3 (4.0-10.0)
[2017-12-23 07:31] LABS: ALK PHOS 82 U/L (45-117); ANION GAP 6 MMOL/L (8-16); BILIRUBIN,TOTAL 0.2 mg/dL (0.2-1); BLOOD UREA NITROGEN 6 mg/dL (7-18); CALCIUM 7.8 mg/dL (8.5-10.1); CHLORIDE 110 mmol/L (98-107); CO2 25 mmol/L (21-32); CREATININE 0.7 mg/dL (0.55-1.3); GLUCOSE,RANDOM 151 mg/dL (74-106); MAGNESIUM 1.9 mg/dL (1.8-2.4); PHOSPHOROUS 2.7 mg/dL (2.5-4.9); POTASSIUM 3.7 mmol/L (3.5-5.1); SGOT/AST 16 U/L (15-37); SGPT/ALT 11 U/L (13-61); SODIUM 140 mmol/L (136-145); TOT PROT 5.6 g/dl (6.4-8.2)
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
[2017-12-23] MEDS: SODIUM CHLORIDE 1,000 ML IV SCH (09:56)
[2017-12-23] MEDS ORDERED: VANCOMYCIN 1,000 MG in DEXTROSE 5%-WATER - 250 ML IVPB SCH (10:45)
[2017-12-23] MEDS: GABAPENTIN 300 MG CAPSULE (FP) PO SCH ×2 (11:00→21:56)
[2017-12-23] MEDS: MULTIVITAMINS (DAILY MVI) TABLET (FP) PO SCH (11:00)
[2017-12-23] MEDS: DOCUSATE SODIUM 100 MG CAPSULE (FP) PO SCH (11:00)
--- NOTE | 2017-12-23 11:46 | PN ---
Physical Exam: SUBJECTIVE: Patient seen and examined at bedside. She is POD # 1 s/p right retrograde pyelogram and right stent removal. She is draining 100cc clear- yellow colored urine into urostomy bag. Admits generalized body pains that are improving with oxycodone and morphine. Denies fevers, shortness of breath, chest pain, palpitations, abdominal pain, nausea, vomiting, diarrhea. OBJECTIVE: Vital Signs Period Temp Pulse Resp BP Sys/Prather Pulse Ox Last 24 Hr 98.4 F-103.2 F 72-98 13-23 83-161/50-102 95-100 GENERAL: Awake, alert, and fully oriented, in no acute distress. HEAD: Normal with no signs of trauma. EYES: Pupils equal, round and sluggishly reactive to light. Extraocular movements intact, sclera anicteric, conjunctiva clear. No lid lag. EARS, NOSE, THROAT: Ears normal, nares patent, oropharynx clear without exudates. Moist mucous membranes. NECK: Supple without lymphadenopathy. LUNGS: Breath sounds equal, clear to auscultation bilaterally. No wheezes, and no crackles. No accessory muscle use. HEART: Regular rate and rhythm, normal S1 and S2 without murmur, rub or gallop. ABDOMEN: Soft, nontender, not distended, normoactive bowel sounds, no guarding, no rebound, no masses. No hepatomegaly or splenomegaly. Urostomy bag draining yellow urine. No erythema or drainage from insertion site. MUSCULOSKELETAL: No range of motion in b/l lower extremities. UPPER EXTREMITIES: 2+ radial pulses, warm, well-perfused. Strength 3/5 b/l upper extremities, limited due to pain. LOWER EXTREMITIES: 1+ dorsalis pedis pulses. No edema b/l. No sensation in b/l lower extremities. Strength 0/5 b/l lower extremities. NEUROLOGICAL: Cranial nerves II-XII intact. Normal speech. PSYCHIATRIC: Appropriate mood and affect. Cooperative. SKIN: Two sacral ulcers (stage 3-4), with significant surrounding edema Laboratory Results - last 24 hr 12/22/17 12/22/17 12/23/17 16:51 22:16 06:15 WBC 9.1 RBC 3.26 L Hgb 9.2 L Hct 28.4 L MCV 87.0 MCH 28.1 MCHC 32.3 RDW 14.0 Plt Count 197 MPV 8.3 Sodium Potassium Chloride Carbon Dioxide Anion Gap BUN Creatinine Creat Clearance w eGFR POC Glucometer 169 192 Random Glucose Calcium Phosphorus Magnesium Total Bilirubin AST ALT Alkaline Phosphatase Total Protein Albumin 12/23/17 12/23/17 12/23/17 06:15 06:40 11:02 WBC RBC Hgb Hct MCV MCH MCHC RDW Plt Count MPV Sodium 140 Potassium 3.7 Chloride 110 H Carbon Dioxide 25 Anion Gap 6 L BUN 6 L Creatinine 0.7 Creat Clearance w eGFR > 60 POC Glucometer 159 129 Random Glucose 151 H Calcium 7.8 L Phosphorus 2.7 Magnesium 1.9 Total Bilirubin 0.2 AST 16 ALT 11 L Alkaline Phosphatase 82 Total Protein 5.6 L Albumin 2.0 L Active Medications Generic Name Dose Route Start Last Admin Trade Name Freq PRN Reason Stop Dose Admin Acetaminophen 650 mg 12/22/17 21:20 12/23/17 03:56 Tylenol - PO 650 mg Q6H PRN Administration FEVER Diazepam 5 mg 12/22/17 14:17 Valium - PO Q24H PRN ANXIETY Docusate Sodium 100 mg 12/23/17 10:00 12/23/17 11:00 Colace - PO 100 mg DAILY CHRIS Administration Gabapentin 300 mg 12/22/17 22:00 12/23/17 11:00 Neurontin - PO 300 mg BID CHRIS Administration Meropenem 1 gm/ Dextrose 100 mls @ 200 mls/hr 12/22/17 18:00 12/23/17 11:00 IVPB 200 mls/hr Q8H-IV CHRIS Administration Vancomycin HCl 1,000 mg/ 250 mls @ 166.667 mls/hr 12/23/17 01:00 12/23/17 01: 28 Dextrose IVPB 166.667 mls/hr Q12H CHRIS Administration Protocol Sodium Chloride 1,000 mls @ 125 mls/hr 12/23/17 07:53 12/23/17 09:56 Normal Saline - IV 125 mls/hr ASDIR CHRIS Administration Insulin Aspart 1 vial 12/22/17 16:30 12/23/17 11:38 Novolog Vial Sliding Scale - SQ 2 units ACHS CHRIS Administration Protocol Levothyroxine Sodium 75 mcg 12/23/17 07:00 12/23/17 06:41 Synthroid - PO 75 mcg DAILY@0700 CHRIS Administration Morphine Sulfate 4 mg 12/22/17 14:17 12/22/17 18:21 Morphine Sulfate IVPUSH 4 mg Q4H PRN Administration PAIN LEVEL 6-10 Multivitamins/Minerals/Vitamin C 1 tab 12/23/17 10:00 12/23/17 11:00 Tab-A-Vit - PO 1 tab DAILY CHRIS Administration Oxycodone HCl 10 mg 12/22/17 14:17 12/23/17 11:01 Roxicodone - PO 10 mg Q4H PRN Administration PAIN LEVEL 1-5 ASSESSMENT/PLAN: Patient is a 67 year old female with history of hypertension, DM, kidney stone s /p ESWL, urethral stricture for surgical repair 12/22/2017, and paraplegia presents for complaint of fevers and chills for the past week. Urosepsis -Likely secondary to healthcare associated UTI vs sacral ulcer, vs. finger lesion UA showed 2+ protein, 3+ glucose, 3+ blood, 2+ leukocyte esterase, + nitrites, 687 WBC, 103 RBC, many bacteria -Lactic acid 1.8 upon admission. Today 1.2 -ID consult (Dr. Kruger) appreciated: Continue Vancomycin 1gm Q24 hours IV and Meropenem Q8H IV (day 4) -Patient is POD #1 s/p right retrograde pyelogram and right stent removal. -Blood cultures grow MRSA, coagulase negative Staph -Repeat blood cultures negative for growth at 24 hours -Urine cultures grow MRSA, Enterococcus faecalis, E. coli. -Morphine 4mg Q4H PRN -Oxycodone 10mg Q4H PRN -Zofran 4mg Q6H PRN -Cardiac ECHO shows normal left ventricular size, thickness, and function. Trace MR, trace TR. Mild aortic root dilation. No pericardial effusion. Anxiety -Valium 5mg PO Q24H PRN Hypothyroidism -Synthroid 0.075mg PO daily Sacral decubitus ulcer -Wound care consult appreciated: will continue optifoam dressings. -Encourage maintaining the area clean, with frequent turning -Air mattress accumax pump Diabetes -Hold home medications -ISS -BGM ACHS -Gabapentin 300mg PO BID for neuropathy -A1C 8.6 FEN -IV normal saline at 125mL/ hour -Electrolytes within normal limits. Follow CMP -Diabetic diet Prophylaxis -Heparin 5000units subq TID Disposition -Continue care in medical surgical floor. Visit type - Emergency Visit Emergency Visit: Yes ED Registration Date: 12/20/17 Care time: The patient presented to the Emergency Department on the above date and was hospitalized for further evaluation of their emergent condition. - New Patient This patient is new to me today: No - Critical Care Critical Care patient: No - Discharge Referral Referred to [facility] Med P.C.: No
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
--- NOTE | 2017-12-23 15:10 | ECHO ---
Name: GREGORIO LEWIS Exam:Adult Echocardiogram Study Date: 12/23/2017 09:46 AM Age: 67 yrs Reason For Study: R/O Endocarditis Height: 60 in Weight: 123 lb BSA: 1.5 m2 MMode/2D Measurements & Calculations IVSd: 0.88 cm Ao root diam: 3.8 cm LVIDd: 4.1 cm LA dimension: 3.2 cm LVIDs: 2.3 cm ACS: 1.7 cm LVPWd: 0.82 cm IVSs: 1.0 cm LVPWs: 1.1 cm EDV(Teich): 75.4 ml ESV(Teich): 18.9 ml Doppler Measurements & Calculations MV E max edmundo: 64.7 cm/sec Ao V2 max: 106.0 cm/sec MV A max edmundo: 59.0 cm/sec Ao max P.5 mmHg MV E/A: 1.1 Ao V2 mean: 64.5 cm/sec Ao mean P.0 mmHg Ao V2 VTI: 17.3 cm TR max edmundo: 205.6 cm/sec PI end-d edmundo: 67.9 cm/sec TR max P.9 mmHg Med Peak E' Edmundo: 6.4 cm/sec Med E/e': 10.2 Lat Peak E' Edmundo: 6.9 cm/sec Lat E/e': 9.4 Procedure A complete two-dimensional transthoracic echocardiogram was performed (2D, M-mode, Doppler and color flow Doppler). Left Ventricle The left ventricular size, thickness and function are normal. Ejection Fraction = 65%. The transmitra l spectral Doppler flow pattern is normal for age. The left ventricular wall motion is normal. Right Ventricle The right ventricle is normal in size and function. Atria Normal left and right atrial size and function. Mitral Valve There is mild mitral valve thickening. There is trace mitral regurgitation. Tricuspid Valve The tricuspid valve is not well visualized, but is grossly normal. There is trace tricuspid regurgita tion. There was insufficient TR detected to calculate RV systolic pressure. Aortic Valve There is mild aortic sclerosis.;. No hemodynamically significant valvular aortic stenosis. Pulmonic Valve The pulmonic valve is not well visualized. Great Vessels Mild aortic root dilatation. Pericardium/Pleura There is no pericardial effusion. Interpretation Summary The left ventricular size, thickness and function are normal The right ventricle is normal in size and function. Normal left and right atrial size and function. There is trace mitral regurgitation. There is trace tricuspid regurgitation. There was insufficient TR detected to calculate RV systolic pressure. No hemodynamically significant valvular aortic stenosis. Mild aortic root dilatation. There is no pericardial effusion. MD Ricky Gauthier 12/23/2017 03:10 PM
[2017-12-23] MEDS: morphine SULFATE 4 MG/ML VIAL IVPUSH PRN (17:30)
--- NOTE | 2017-12-23 17:42 | PN ---
Progress Note (short form) - Note Progress Note: feels well stent removed Vital Signs Period Temp Pulse Resp BP Sys/Prather Pulse Ox Last 24 Hr 98.4 F-103.2 F 7-89 18-20 83-145/50-102 95 cor-rrr lungs clear abd _urostomy ext no edema CBC, BMP 12/23/17 06:15 12/23/17 06:15 Microbiology 12/20/17 16:15 Blood - Peripheral Venous Blood Culture - Preliminary NO GROWTH OBTAINED AFTER 72 HOURS, INCUBATION TO CONTINUE FOR 2 DAYS. 12/20/17 16:15 Urine - Urine Baldwin Urine Culture - Final S Aureus Enterococcus Faecalis Escherichia Coli 12/22/17 09:20 Blood - Peripheral Venous Blood Culture - Preliminary NO GROWTH OBTAINED AFTER 24 HOURS, INCUBATION TO CONTINUE FOR 4 DAYS. 12/22/17 09:55 Blood - Peripheral Venous Blood Culture - Preliminary NO GROWTH OBTAINED AFTER 24 HOURS, INCUBATION TO CONTINUE FOR 4 DAYS. 12/20/17 16:15 Blood - Peripheral Venous Blood Culture - Preliminary S Aureus Staphylococcus Coagulase Neg a/p bacteremia- mrsa-day #3 antibiotics secondary to UTI continue vancomycin d/c meropenem rocephin for 4 more doses to complete 7 days vanco trough in am repeat blood cultures pending echo negative will require 4 weeks vancomycin if repeat blood cultures are negative paraplegia callous of the finger unchanged Problem List - Problems (1) Sepsis Code(s): A41.9 - SEPSIS, UNSPECIFIED ORGANISM Qualifiers: Sepsis type: sepsis due to unspecified organism Qualified Code(s): A41.9 - Sepsis, unspecified organism (2) Urinary tract infection Code(s): N39.0 - URINARY TRACT INFECTION, SITE NOT SPECIFIED Qualifiers: Urinary tract infection type: site unspecified Hematuria presence: with hematuria Qualified Code(s): N39.0 - Urinary tract infection, site not specified; R31.9 - Hematuria, unspecified (3) Cellulitis Code(s): L03.90 - CELLULITIS, UNSPECIFIED (4) Nephrolithiasis Code(s): N20.0 - CALCULUS OF KIDNEY
[2017-12-23] MEDS: HEPARIN NA (PORCINE) 5,000 UNITS/ML 1ML VIAL SQ SCH (21:56)
[2017-12-24] MEDS ORDERED: IBUPROFEN 400 MG TABLET (FP) PO ONE (00:58)
[2017-12-24] MEDS ORDERED: PT OWN MED DRAWER 7, Y5N ONE (01:08)
[2017-12-24] MEDS: VANCOMYCIN 1,000 MG in DEXTROSE 5%-WATER - 250 ML IVPB SCH ×2 (01:29→13:03)
[2017-12-24] MEDS: HEPARIN NA (PORCINE) 5,000 UNITS/ML 1ML VIAL SQ SCH ×3 (05:55→21:22)
[2017-12-24] MEDS: LEVOTHYROXINE NA 75 MCG TABLET (FP) PO SCH (06:03)
[2017-12-24] MEDS: ACETAMINOPHEN 325 MG TABLET (FP) PO PRN ×2 (06:18→20:02)
[2017-12-24] MEDS: oxyCODONE HCL 5 MG TABLET PO PRN ×4 (06:18→20:01)
[2017-12-24] MEDS: INSULIN SLIDING SCALE (NOVOLOG) 1 VIAL SQ SCH ×4 (06:37→21:23)
[2017-12-24 07:03] LABS: HEMATOCRIT 28.2 % (32.4-45.2); HEMOGLOBIN 9.1 GM/dL (10.7-15.3); MCH 27.8 pg (25.7-33.7); MCHC 32.2 g/dl (32.0-36.0); MEAN CELL VOLUME 86.3 fl (80-96); MEAN PLT VOLUME 8.2 fl (7.5-11.1); PLATELET COUNT 176 K/MM3 (134-434); RBC 3.26 M/mm3 (3.60-5.2); RDW 13.8 % (11.6-15.6)
[2017-12-24 07:42] LABS: ALK PHOS 85 U/L (45-117); ANION GAP 8 MMOL/L (8-16); BILIRUBIN,TOTAL 0.2 mg/dL (0.2-1); BLOOD UREA NITROGEN 8 mg/dL (7-18); CALCIUM 7.8 mg/dL (8.5-10.1); CHLORIDE 114 mmol/L (98-107); CO2 22 mmol/L (21-32); CREATININE 0.6 mg/dL (0.55-1.3); GLUCOSE,RANDOM 140 mg/dL (74-106); MAGNESIUM 1.9 mg/dL (1.8-2.4); PHOSPHOROUS 2.4 mg/dL (2.5-4.9); POTASSIUM 3.5 mmol/L (3.5-5.1); SGOT/AST 19 U/L (15-37); SGPT/ALT 13 U/L (13-61); SODIUM 144 mmol/L (136-145); TOT PROT 5.6 g/dl (6.4-8.2)
[2017-12-24] MEDS: SODIUM CHLORIDE 1,000 ML IV SCH ×2 (07:50→16:44)
[2017-12-24] MEDS: DOCUSATE SODIUM 100 MG CAPSULE (FP) PO SCH ×2 (09:53→19:19)
[2017-12-24] MEDS: GABAPENTIN 300 MG CAPSULE (FP) PO SCH ×2 (09:53→21:23)
[2017-12-24] MEDS: MULTIVITAMINS (DAILY MVI) TABLET (FP) PO SCH (09:53)
--- NOTE | 2017-12-24 10:16 | PN ---
Physical Exam: SUBJECTIVE: Patient seen and examined at bedside. She is POD # 2 s/p right retrograde pyelogram and right stent removal. She is draining 200cc clear- yellow colored urine into urostomy bag. Admits generalized body pains worst at right side of neck that are temporarily palliated with oxycodone and morphine. Denies fevers, shortness of breath, chest pain, palpitations, abdominal pain, nausea, vomiting, diarrhea. OBJECTIVE: Vital Signs Period Temp Pulse Resp BP Sys/Prather Pulse Ox Last 24 Hr 98.4 F-102.3 F 69-90 18-18 83-136/45-65 97-99 GENERAL: Awake, alert, and fully oriented, in no acute distress. HEAD: Normal with no signs of trauma. EYES: Pupils equal, round and reactive to light. Extraocular movements intact, sclera anicteric, conjunctiva clear. EARS, NOSE, THROAT: Ears normal, nares patent, oropharynx clear without exudates. Moist mucous membranes. NECK: Supple without lymphadenopathy. LUNGS: Breath sounds equal, clear to auscultation bilaterally. No wheezes, and no crackles. No accessory muscle use. HEART: Regular rate and rhythm, normal S1 and S2 without murmur, rub or gallop. ABDOMEN: Soft, nontender, not distended, normoactive bowel sounds, no guarding, no rebound, no masses. No hepatomegaly or splenomegaly. Urostomy bag draining clear-yellow urine. No erythema or drainage from insertion site. MUSCULOSKELETAL: No range of motion in b/l lower extremities. Tender to palpation at right and left sided neck. UPPER EXTREMITIES: 2+ radial pulses, warm, well-perfused. Strength 3/5 b/l upper extremities, limited due to pain. LOWER EXTREMITIES: 1+ dorsalis pedis pulses. No edema b/l. No sensation in b/l lower extremities. Strength 0/5 b/l lower extremities. NEUROLOGICAL: Cranial nerves II-XII intact. Normal speech. PSYCHIATRIC: Appropriate mood and affect. Cooperative. SKIN: Two sacral ulcers (stage 3-4), with significant surrounding edema Laboratory Results - last 24 hr 12/22/17 12/23/17 12/23/17 15:30 08:30 11:02 WBC RBC Hgb Hct MCV MCH MCHC RDW Plt Count MPV Sodium Potassium Chloride Carbon Dioxide Anion Gap BUN Creatinine Creat Clearance w eGFR POC Glucometer 190 129 Random Glucose Lactic Acid Cancelled Calcium Phosphorus Magnesium Total Bilirubin AST ALT Alkaline Phosphatase Total Protein Albumin 12/23/17 12/23/17 12/23/17 12:40 17:03 20:58 WBC RBC Hgb Hct MCV MCH MCHC RDW Plt Count MPV Sodium Potassium Chloride Carbon Dioxide Anion Gap BUN Creatinine Creat Clearance w eGFR POC Glucometer 191 167 Random Glucose Lactic Acid 1.2 Calcium Phosphorus Magnesium Total Bilirubin AST ALT Alkaline Phosphatase Total Protein Albumin 12/24/17 12/24/17 12/24/17 06:00 06:00 06:03 WBC 7.0 RBC 3.26 L Hgb 9.1 L Hct 28.2 L MCV 86.3 MCH 27.8 MCHC 32.2 RDW 13.8 Plt Count 176 MPV 8.2 Sodium 144 Potassium 3.5 Chloride 114 H Carbon Dioxide 22 Anion Gap 8 BUN 8 Creatinine 0.6 Creat Clearance w eGFR > 60 POC Glucometer 160 Random Glucose 140 H Lactic Acid Calcium 7.8 L Phosphorus 2.4 L Magnesium 1.9 Total Bilirubin 0.2 AST 19 ALT 13 Alkaline Phosphatase 85 Total Protein 5.6 L Albumin 2.0 L Active Medications Generic Name Dose Route Start Last Admin Trade Name Freq PRN Reason Stop Dose Admin Acetaminophen 650 mg 12/22/17 21:20 12/24/17 06:18 Tylenol - PO 650 mg Q6H PRN Administration FEVER Diazepam 5 mg 12/22/17 14:17 Valium - PO Q24H PRN ANXIETY Docusate Sodium 100 mg 12/23/17 10:00 12/24/17 09:53 Colace - PO 100 mg DAILY CHRIS Administration Gabapentin 300 mg 12/22/17 22:00 12/24/17 09:53 Neurontin - PO 300 mg BID CHRIS Administration Heparin Sodium (Porcine) 5,000 unit 12/23/17 22:00 12/24/17 05:55 Heparin - SQ 5,000 unit TID CHRIS Administration Vancomycin HCl 1,000 mg/ 250 mls @ 166.667 mls/hr 12/23/17 01:00 12/24/17 01: 29 Dextrose IVPB 166.667 mls/hr Q12H CHRIS Administration Protocol Sodium Chloride 1,000 mls @ 125 mls/hr 12/23/17 07:53 12/24/17 07:50 Normal Saline - IV 125 mls/hr ASDIR CHRIS Administration Insulin Aspart 1 vial 12/22/17 16:30 12/24/17 06:37 Novolog Vial Sliding Scale - SQ 4 units ACHS CHRIS Administration Protocol Levothyroxine Sodium 75 mcg 12/23/17 07:00 12/24/17 06:03 Synthroid - PO 75 mcg DAILY@0700 CHRIS Administration Morphine Sulfate 4 mg 12/22/17 14:17 12/23/17 17:30 Morphine Sulfate IVPUSH 4 mg Q4H PRN Administration PAIN LEVEL 6-10 Multivitamins/Minerals/Vitamin C 1 tab 12/23/17 10:00 12/24/17 09:53 Tab-A-Vit - PO 1 tab DAILY CHRIS Administration Oxycodone HCl 10 mg 12/22/17 14:17 12/24/17 06:18 Roxicodone - PO 10 mg Q4H PRN Administration PAIN LEVEL 1-5 IMAGING: Chest Xray: No acute infiltrate, pleural effusion. CT abdomen, pelvis: Patient is s/p right urethral stent without hydronephrosis, and ileal conduit noted within LLQ. Right retroperitoneal mass noted stable since 2012. No acute abdominal or pelvic pathology. Cardiac ECHO shows normal left ventricular size, thickness, and function. Trace MR, trace TR. Mild aortic root dilation. No pericardial effusion. ASSESSMENT/PLAN: Patient is a 67 year old female with history of hypertension, DM, kidney stone s /p ESWL, urethral stricture for surgical repair 12/22/2017, and paraplegia presents for complaint of fevers and chills for the past week. Urosepsis -Likely secondary to healthcare associated UTI vs sacral ulcer, vs. finger lesion UA showed 2+ protein, 3+ glucose, 3+ blood, 2+ leukocyte esterase, + nitrites, 687 WBC, 103 RBC, many bacteria -Lactic acid 1.8 upon admission -> 1.2 -ID consult (Dr. Kruger) appreciated: Continue Vancomycin 1gm Q12 hours IV. F/U Vancomycin trough Meropenem 1gm Q8H -Patient is POD #2 s/p right retrograde pyelogram and right stent removal. -Blood cultures grow MRSA, coagulase negative Staph -Repeat blood cultures negative for growth at 48 hours. Patient will require 4 weeks vancomycin if cultures remain negative. -Urine cultures grow MRSA, Enterococcus faecalis, E. coli. -Morphine 4mg Q4H PRN -Oxycodone 10mg Q4H PRN -Zofran 4mg Q6H PRN Anxiety -Valium 5mg PO Q24H PRN Hypothyroidism -Synthroid 0.075mg PO daily Sacral decubitus ulcer -Wound care consult appreciated: will continue optifoam dressings. -Encourage maintaining the area clean, with frequent turning -Air mattress accumax pump Diabetes -Hold home medications -ISS -BGM ACHS -Gabapentin 300mg PO BID for neuropathy -A1C 8.6 FEN -IV normal saline at 125mL/ hour -Electrolytes within normal limits. Follow CMP -Diabetic diet Prophylaxis -Heparin 5000units subq TID Disposition -Continue care in medical surgical floor. Visit type - Emergency Visit Emergency Visit: Yes ED Registration Date: 12/20/17 Care time: The patient presented to the Emergency Department on the above date and was hospitalized for further evaluation of their emergent condition. - New Patient This patient is new to me today: No - Critical Care Critical Care patient: No - Discharge Referral Referred to [facility] Med P.C.: No
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
--- NOTE | 2017-12-24 17:44 | PATH ---
Surgical Pathology Report Patient Name: GREGORIO LEWIS Med. Rec. #: [id number] /Age/Gender: 1950 (Age: 67) / F Account: [id number] Location: [facility] MED/SURG Taken: 12/22/2017 Received: 12/23/2017 Reported: 12/24/2017 Physicians: Tim Payton M.D. Specimen(s) Received REMOVED STENT Clinical History UTI, sepsis Final Diagnosis REMOVED STENT: CONSISTENT WITH URINARY STENT. GROSS EXAMINATION ONLY. Electronically Signed Gemini Mckeon M.D. Gross Description Specimen received in a plastic container, labeled "removed stent", and consists of a segment of plastic stent measuring 40 cm and 0.2 cm in diameter. Separate segment of stent measuring 10cm in length with port-like structure is also present. No sections are taken. Gross examination only. CATRACHITA/12/24/2017 parviz/12/24/2017
[2017-12-24] MEDS ORDERED: INSULIN (NOVOLOG) ASPART 100 UNITS/ML 10ML VIAL ONE (20:21)
[2017-12-24] MEDS: SENNOSIDES 8.6MG TABLET (FP) PO SCH (21:23)
--- NOTE | 2017-12-25 | PN ---
Progress Note (short form) - Note Progress Note: Vascular Surgery Pt seen and examined with son at bedside. Sacral lesions are just excoriations No open wounds Protective dressing to sacrum Please off load. Hugo mae DO
[2017-12-25] MEDS: MEROPENEM 1 GM in DEXTROSE 5%-WATER 100 ML IVPB SCH ×2 (01:07→10:19)
[2017-12-25] MEDS: VANCOMYCIN 1,000 MG in DEXTROSE 5%-WATER - 250 ML IVPB SCH ×2 (01:56→18:34)
[2017-12-25] MEDS: SODIUM CHLORIDE 1,000 ML IV SCH ×2 (01:59→10:18)
[2017-12-25] MEDS: ACETAMINOPHEN 325 MG TABLET (FP) PO PRN ×2 (02:00→10:33)
[2017-12-25] MEDS: oxyCODONE HCL 5 MG TABLET PO PRN ×3 (02:05→10:33)
[2017-12-25] MEDS: INSULIN SLIDING SCALE (NOVOLOG) 1 VIAL SQ SCH ×4 (06:34→21:47)
[2017-12-25] MEDS: HEPARIN NA (PORCINE) 5,000 UNITS/ML 1ML VIAL SQ SCH ×3 (06:34→21:47)
[2017-12-25] MEDS: LEVOTHYROXINE NA 75 MCG TABLET (FP) PO SCH (06:35)
[2017-12-25 07:13] LABS: HEMOGLOBIN 8.1 GM/dL (10.7-15.3); MCH 27.9 pg (25.7-33.7); MCHC 32.3 g/dl (32.0-36.0); MEAN CELL VOLUME 86.5 fl (80-96); MEAN PLT VOLUME 8.6 fl (7.5-11.1); PLATELET COUNT 184 K/MM3 (134-434); RDW 13.8 % (11.6-15.6); WHITE BLOOD COUNT 5.9 K/mm3 (4.0-10.0)
[2017-12-25 07:41] LABS: ALBUMIN 1.8 g/dl (3.4-5.0); ALK PHOS 81 U/L (45-117); ANION GAP 5 MMOL/L (8-16); BILIRUBIN,TOTAL 0.2 mg/dL (0.2-1); BLOOD UREA NITROGEN 10 mg/dL (7-18); CALCIUM 7.6 mg/dL (8.5-10.1); CHLORIDE 115 mmol/L (98-107); CO2 23 mmol/L (21-32); CREATININE 0.6 mg/dL (0.55-1.3); GLUCOSE,RANDOM 113 mg/dL (74-106); MAGNESIUM 1.7 mg/dL (1.8-2.4); PHOSPHOROUS 2.4 mg/dL (2.5-4.9); POTASSIUM 3.8 mmol/L (3.5-5.1); SGOT/AST 19 U/L (15-37); SGPT/ALT 13 U/L (13-61); SODIUM 143 mmol/L (136-145); TOT PROT 5.5 g/dl (6.4-8.2)
[2017-12-25] MEDS ORDERED: NAPH,MB-DB/K PH,MBDB POWDER PACKET PO ONE (07:58)
[2017-12-25] MEDS ORDERED: MAGNESIUM OXIDE 400 MG TABLET (FP) PO ONE (07:58)
[2017-12-25] MEDS: GABAPENTIN 300 MG CAPSULE (FP) PO SCH ×2 (10:19→21:47)
[2017-12-25] MEDS: MULTIVITAMINS (DAILY MVI) TABLET (FP) PO SCH (10:19)
[2017-12-25] MEDS: DOCUSATE SODIUM 100 MG CAPSULE (FP) PO SCH (10:20)
[2017-12-25] MEDS ORDERED: SODIUM CHLORIDE 1,000 ML IV SCH (11:18)
[2017-12-25] MEDS ORDERED: cefTRIAXone SODIUM 1 GM VIAL ONE (13:56)
[2017-12-25] MEDS ORDERED: DEXTROSE 5%-WATER - 50 ML IVPB ONE (13:56)
[2017-12-25] MEDS: CEFTRIAXONE 1 GM in DEXTROSE 5%-WATER - 50 ML IVPB SCH (14:05)
--- NOTE | 2017-12-25 15:28 | PN ---
Physical Exam: SUBJECTIVE: Patient seen and examined at bedside. She is POD # 3 s/p right retrograde pyelogram and right stent removal. She is draining clear- light yellow colored urine into urostomy bag. Still complaint of generalized body pains worst at right side of neck that are temporarily palliated with oxycodone and morphine. Denies fevers, shortness of breath, chest pain, palpitations, abdominal pain, nausea, vomiting, diarrhea. OBJECTIVE: Vital Signs Period Temp Pulse Resp BP Sys/Prather Pulse Ox Last 24 Hr 98.1 F-99.4 F 66-88 20-20 99-135/43-71 96-97 GENERAL: Awake, alert, and fully oriented, in no acute distress. HEAD: Normal with no signs of trauma. EYES: Pupils equal, round and reactive to light. Extraocular movements intact, sclera anicteric, conjunctiva clear. EARS, NOSE, THROAT: Ears normal, nares patent, oropharynx clear without exudates. Moist mucous membranes. NECK: Supple without lymphadenopathy. LUNGS: Breath sounds equal, clear to auscultation bilaterally. No wheezes, and no crackles. No accessory muscle use. HEART: Regular rate and rhythm, normal S1 and S2 without murmur, rub or gallop. ABDOMEN: Soft, nontender, not distended, normoactive bowel sounds, no guarding, no rebound, no masses. No hepatomegaly or splenomegaly. Urostomy bag draining clear-light yellow urine. No erythema or drainage from insertion site. MUSCULOSKELETAL: No range of motion in b/l lower extremities. Tender to palpation at right and left sided neck. UPPER EXTREMITIES: 2+ radial pulses, warm, well-perfused. Strength 3/5 b/l upper extremities, limited due to pain. LOWER EXTREMITIES: 1+ dorsalis pedis pulses. No edema b/l. No sensation in b/l lower extremities. Strength 0/5 b/l lower extremities. NEUROLOGICAL: Cranial nerves II-XII intact. Normal speech. PSYCHIATRIC: Appropriate mood and affect. Cooperative. SKIN: Two sacral ulcers (stage 3-4) noted. Laboratory Results - last 24 hr 12/24/17 12/24/17 12/24/17 15:18 16:45 21:00 WBC RBC Hgb Hct MCV MCH MCHC RDW Plt Count MPV Sodium Potassium Chloride Carbon Dioxide Anion Gap BUN Creatinine Creat Clearance w eGFR POC Glucometer 147 142 217 Random Glucose Calcium Phosphorus Magnesium Total Bilirubin AST ALT Alkaline Phosphatase Total Protein Albumin Random Vancomycin Vancomycin Pre-Dose 12/25/17 12/25/17 12/25/17 01:00 05:46 06:00 WBC 5.9 RBC 2.90 L Hgb 8.1 L Hct 25.0 L MCV 86.5 MCH 27.9 MCHC 32.3 RDW 13.8 Plt Count 184 MPV 8.6 Sodium Potassium Chloride Carbon Dioxide Anion Gap BUN Creatinine Creat Clearance w eGFR POC Glucometer 130 Random Glucose Calcium Phosphorus Magnesium Total Bilirubin AST ALT Alkaline Phosphatase Total Protein Albumin Random Vancomycin Vancomycin Pre-Dose 28.7 H 12/25/17 12/25/17 12/25/17 06:00 11:35 11:36 WBC RBC Hgb Hct MCV MCH MCHC RDW Plt Count MPV Sodium 143 Potassium 3.8 Chloride 115 H Carbon Dioxide 23 Anion Gap 5 L BUN 10 Creatinine 0.6 Creat Clearance w eGFR > 60 POC Glucometer > 600 223 Random Glucose 113 H Calcium 7.6 L Phosphorus 2.4 L Magnesium 1.7 L Total Bilirubin 0.2 AST 19 ALT 13 Alkaline Phosphatase 81 Total Protein 5.5 L Albumin 1.8 L Random Vancomycin Vancomycin Pre-Dose 12/25/17 13:00 WBC RBC Hgb Hct MCV MCH MCHC RDW Plt Count MPV Sodium Potassium Chloride Carbon Dioxide Anion Gap BUN Creatinine Creat Clearance w eGFR POC Glucometer Random Glucose Calcium Phosphorus Magnesium Total Bilirubin AST ALT Alkaline Phosphatase Total Protein Albumin Random Vancomycin 18.3 Vancomycin Pre-Dose Active Medications Generic Name Dose Route Start Last Admin Trade Name Freq PRN Reason Stop Dose Admin Acetaminophen 650 mg 12/22/17 21:20 12/25/17 10:33 Tylenol - PO 650 mg Q6H PRN Administration FEVER Docusate Sodium 100 mg 12/23/17 10:00 12/25/17 10:20 Colace - PO Not Given DAILY CHRIS Gabapentin 300 mg 12/22/17 22:00 12/25/17 10:19 Neurontin - PO 300 mg BID CHRIS Administration Heparin Sodium (Porcine) 5,000 unit 12/23/17 22:00 12/25/17 13:51 Heparin - SQ 5,000 unit TID CHRIS Administration Vancomycin HCl 1,000 mg/ 250 mls @ 166.667 mls/hr 12/23/17 01:00 12/25/17 01: 56 Dextrose IVPB Not Given Q12H CHRIS Protocol Sodium Chloride 1,000 mls @ 75 mls/hr 12/25/17 11:18 12/25/17 11:41 Normal Saline - IV 75 mls/hr ASDIR CHRIS Administration Ceftriaxone Sodium 1 gm/ 50 mls @ 100 mls/hr 12/25/17 14:00 12/25/17 14:05 Dextrose IVPB 100 mls/hr DAILY CHRIS Administration Protocol Insulin Aspart 1 vial 12/22/17 16:30 12/25/17 11:39 Novolog Vial Sliding Scale - SQ 6 units ACHS CHRIS Administration Protocol Levothyroxine Sodium 75 mcg 12/23/17 07:00 12/25/17 06:35 Synthroid - PO 75 mcg DAILY@0700 CHRIS Administration Multivitamins/Minerals/Vitamin C 1 tab 12/23/17 10:00 12/25/17 10:19 Tab-A-Vit - PO 1 tab DAILY CHRIS Administration Senna 1 tab 12/24/17 22:00 12/24/17 21:23 Senna - PO 1 tab HS CHRIS Administration IMAGING: Chest Xray: No acute infiltrate, pleural effusion. CT abdomen, pelvis: Patient is s/p right urethral stent without hydronephrosis, and ileal conduit noted within LLQ. Right retroperitoneal mass noted stable since 2012. No acute abdominal or pelvic pathology. Cardiac ECHO shows normal left ventricular size, thickness, and function. Trace MR, trace TR. Mild aortic root dilation. No pericardial effusion. ASSESSMENT/PLAN: Patient is a 67 year old female with history of hypertension, DM, kidney stone s /p ESWL, urethral stricture for surgical repair 12/22/2017, and paraplegia presents for complaint of fevers and chills for the past week. Urosepsis -Likely secondary to healthcare associated UTI UA upon admission showed 2+ protein, 3+ glucose, 3+ blood, 2+ leukocyte esterase , + nitrites, 687 WBC, 103 RBC, many bacteria -Lactic acid 1.8 upon admission -> 1.2 -ID consult (Dr. Kruger) appreciated: Vancomycin trough elevated today. Will hold Vancomycin, Rocephin 1gm IV Q24H -Patient is POD #3 s/p right retrograde pyelogram and right stent removal. -Blood cultures grow MRSA, coagulase negative Staph -Repeat blood cultures negative for growth. Patient will require 4 weeks vancomycin if cultures remain negative. -Urine cultures grow MRSA, Enterococcus faecalis, E. coli. -Morphine 4mg Q4H PRN -Oxycodone 10mg Q4H PRN -Zofran 4mg Q6H PRN Anxiety -Valium 5mg PO Q24H PRN Hypothyroidism -Synthroid 0.075mg PO daily Sacral decubitus ulcer -Wound care consult appreciated: will continue optifoam dressings. -Encourage maintaining the area clean, with frequent turning -Air mattress accumax pump Diabetes -Hold home medications -ISS -BGM ACHS -Gabapentin 300mg PO BID for neuropathy -A1C 8.6 FEN -IV normal saline at 125mL/ hour -Electrolytes within normal limits. Follow CMP -Diabetic diet Prophylaxis -Heparin 5000units subq TID Disposition -Continue care in medical surgical floor. Visit type - Emergency Visit Emergency Visit: Yes ED Registration Date: 12/20/17 Care time: The patient presented to the Emergency Department on the above date and was hospitalized for further evaluation of their emergent condition. - New Patient This patient is new to me today: No - Critical Care Critical Care patient: No - Discharge Referral Referred to [facility] Med P.C.: No
[2017-12-25] MEDS ORDERED: oxyCODONE HCL 5 MG TABLET PO PRN (16:59)
[2017-12-25] MEDS ORDERED: morphine SULFATE 4 MG/ML VIAL IVPUSH PRN (17:00)
--- NOTE | 2017-12-25 17:55 | PN ---
Progress Note (short form) - Note Progress Note: feels well stent removed transient fevr, recultured, feels well eating dinner Vital Signs Period Temp Pulse Resp BP Sys/Prather Pulse Ox Last 24 Hr 98.1 F-99.4 F 66-88 20-20 99-135/43-71 96-97 cor-rrr lungs clear abd soft,nt _urostomy with clear urine ext no edema CBC, BMP 12/25/17 06:00 12/25/17 06:00 Microbiology 12/20/17 16:15 Blood - Peripheral Venous Blood Culture - Final NO GROWTH AFTER 5 DAYS INCUBATION 12/20/17 16:15 Blood - Peripheral Venous Blood Culture - Final S Aureus Staphylococcus Epidermidis 12/22/17 09:20 Blood - Peripheral Venous Blood Culture - Preliminary NO GROWTH OBTAINED AFTER 72 HOURS, INCUBATION TO CONTINUE FOR 2 DAYS. 12/22/17 09:55 Blood - Peripheral Venous Blood Culture - Preliminary NO GROWTH OBTAINED AFTER 72 HOURS, INCUBATION TO CONTINUE FOR 2 DAYS. 12/24/17 07:45 Blood - Peripheral Venous Blood Culture - Preliminary NO GROWTH OBTAINED AFTER 24 HOURS, INCUBATION TO CONTINUE FOR 4 DAYS. 12/24/17 07:50 Blood - Peripheral Venous Blood Culture - Preliminary NO GROWTH OBTAINED AFTER 24 HOURS, INCUBATION TO CONTINUE FOR 4 DAYS. 12/20/17 16:15 Urine - Urine Baldwin Urine Culture - Final S Aureus Enterococcus Faecalis Escherichia Coli a/p bacteremia- mrsa-day #5 antibiotics secondary to UTI rocephin to complete 7 days for uti vanco on hold due to high levels repeat in am and resume vancomycin daily repeat blood cultures negative echo negative will require 4 weeks vancomycin i paraplegia callous of the finger unchanged d/w primary service Problem List - Problems (1) Sepsis Code(s): A41.9 - SEPSIS, UNSPECIFIED ORGANISM Qualifiers: Sepsis type: sepsis due to unspecified organism Qualified Code(s): A41.9 - Sepsis, unspecified organism (2) Urinary tract infection Code(s): N39.0 - URINARY TRACT INFECTION, SITE NOT SPECIFIED Qualifiers: Urinary tract infection type: site unspecified Hematuria presence: with hematuria Qualified Code(s): N39.0 - Urinary tract infection, site not specified; R31.9 - Hematuria, unspecified (3) Cellulitis Code(s): L03.90 - CELLULITIS, UNSPECIFIED (4) Nephrolithiasis Code(s): N20.0 - CALCULUS OF KIDNEY
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
[2017-12-25] MEDS: SENNOSIDES 8.6MG TABLET (FP) PO SCH (21:47)
[2017-12-25] MEDS: MORPHINE SULFATE 2 MG/ML VIAL IVPUSH PRN (21:47)
[2017-12-26] MEDS: oxyCODONE HCL 5 MG TABLET PO PRN ×4 (00:54→19:30)
[2017-12-26] MEDS: ACETAMINOPHEN 325 MG TABLET (FP) PO PRN (00:54)
[2017-12-26] MEDS: MORPHINE SULFATE 2 MG/ML VIAL IVPUSH PRN (06:48)
[2017-12-26] MEDS: LEVOTHYROXINE NA 75 MCG TABLET (FP) PO SCH (06:49)
[2017-12-26] MEDS: INSULIN SLIDING SCALE (NOVOLOG) 1 VIAL SQ SCH ×4 (06:49→22:22)
[2017-12-26] MEDS: HEPARIN NA (PORCINE) 5,000 UNITS/ML 1ML VIAL SQ SCH ×3 (06:49→22:22)
[2017-12-26 08:01] LABS: HEMATOCRIT 24.7 % (32.4-45.2); MCH 27.7 pg (25.7-33.7); MCHC 32.3 g/dl (32.0-36.0); MEAN CELL VOLUME 85.8 fl (80-96); MEAN PLT VOLUME 8.1 fl (7.5-11.1); PLATELET COUNT 213 K/MM3 (134-434); RBC 2.89 M/mm3 (3.60-5.2); RDW 13.7 % (11.6-15.6); WHITE BLOOD COUNT 6.3 K/mm3 (4.0-10.0)
[2017-12-26 08:06] LABS: ALBUMIN 1.9 g/dl (3.4-5.0); ALK PHOS 86 U/L (45-117); ANION GAP 9 MMOL/L (8-16); BILIRUBIN,TOTAL 0.2 mg/dL (0.2-1); BLOOD UREA NITROGEN 7 mg/dL (7-18); CALCIUM 8.2 mg/dL (8.5-10.1); CHLORIDE 114 mmol/L (98-107); CO2 22 mmol/L (21-32); CREATININE 0.5 mg/dL (0.55-1.3); GLUCOSE,RANDOM 97 mg/dL (74-106); MAGNESIUM 1.7 mg/dL (1.8-2.4); PHOSPHOROUS 2.2 mg/dL (2.5-4.9); POTASSIUM 4.2 mmol/L (3.5-5.1); SGOT/AST 14 U/L (15-37); SGPT/ALT 12 U/L (13-61); SODIUM 144 mmol/L (136-145); TOT PROT 5.6 g/dl (6.4-8.2)
[2017-12-26] MEDS ORDERED: cefTRIAXone SODIUM 1 GM VIAL ONE (09:30)
[2017-12-26] MEDS ORDERED: DEXTROSE 5%-WATER - 50 ML IVPB ONE (09:30)
[2017-12-26] MEDS: MULTIVITAMINS (DAILY MVI) TABLET (FP) PO SCH (09:34)
[2017-12-26] MEDS: GABAPENTIN 300 MG CAPSULE (FP) PO SCH ×2 (09:34→22:22)
[2017-12-26] MEDS: DOCUSATE SODIUM 100 MG CAPSULE (FP) PO SCH (09:35)
[2017-12-26] MEDS: CEFTRIAXONE 1 GM in DEXTROSE 5%-WATER - 50 ML IVPB SCH (09:36)
[2017-12-26] MEDS ORDERED: NAPH,MB-DB/K PH,MBDB POWDER PACKET PO ONE (11:43)
[2017-12-26] MEDS ORDERED: MAGNESIUM OXIDE 400 MG TABLET (FP) PO ONE (11:43)
[2017-12-26] MEDS ORDERED: VANCOMYCIN 1 GM PREMIX - 1 GM/200 ML BAG IVPB SCH ×2 (12:00→15:15)
--- NOTE | 2017-12-26 13:29 | PN ---
Physical Exam: SUBJECTIVE: Patient seen and examined at bedside. She is POD # 4 s/p right retrograde pyelogram and right stent removal. She is draining approx. 600cc clear-light yellow colored urine into urostomy bag this morning. Today endorses shortness of breath, that she admits has been on and off since before coming to the hospital. Still complaint of generalized body pains worst at right side of neck. Denies fevers, shortness of breath, chest pain, palpitations, abdominal pain, nausea, vomiting, diarrhea. OBJECTIVE: Vital Signs Period Temp Pulse Resp BP Sys/Prather Pulse Ox Last 24 Hr 98.1 F-99.9 F 64-79 18-22 112-157/43-92 96 GENERAL: Awake, alert, and fully oriented, in no acute distress. HEAD: Normal with no signs of trauma. EYES: Pupils equal, round and reactive to light. Extraocular movements intact, sclera anicteric, conjunctiva clear. EARS, NOSE, THROAT: Ears normal, nares patent, oropharynx clear without exudates. Moist mucous membranes. NECK: Supple without lymphadenopathy. LUNGS: Breath sounds equal, clear to auscultation bilaterally. No wheezes, and no crackles. No accessory muscle use. HEART: Regular rate and rhythm, normal S1 and S2 without murmur, rub or gallop. ABDOMEN: Soft, nontender, not distended, normoactive bowel sounds, no guarding, no rebound, no masses. No hepatomegaly or splenomegaly. Urostomy bag draining clear-light yellow urine. No erythema or drainage from insertion site. MUSCULOSKELETAL: No range of motion in b/l lower extremities. Tender to palpation at right and left sided neck. UPPER EXTREMITIES: 2+ radial pulses, warm, well-perfused. Strength 3/5 b/l upper extremities, limited due to pain. LOWER EXTREMITIES: 1+ dorsalis pedis pulses. No edema b/l. No sensation in b/l lower extremities. Strength 0/5 b/l lower extremities. NEUROLOGICAL: Cranial nerves II-XII intact. Normal speech. PSYCHIATRIC: Appropriate mood and affect. Cooperative. SKIN: Two sacral ulcers (stage 3-4) noted. Laboratory Results - last 24 hr 12/25/17 12/25/17 12/25/17 11:35 11:36 13:00 WBC RBC Hgb Hct MCV MCH MCHC RDW Plt Count MPV Sodium Potassium Chloride Carbon Dioxide Anion Gap BUN Creatinine Creat Clearance w eGFR POC Glucometer > 600 223 Random Glucose Calcium Phosphorus Magnesium Total Bilirubin AST ALT Alkaline Phosphatase Total Protein Albumin Random Vancomycin 18.3 12/25/17 12/25/17 12/26/17 16:40 21:38 06:00 WBC RBC Hgb Hct MCV MCH MCHC RDW Plt Count MPV Sodium 144 Potassium 4.2 Chloride 114 H Carbon Dioxide 22 Anion Gap 9 BUN 7 Creatinine 0.5 L Creat Clearance w eGFR > 60 POC Glucometer 117 132 Random Glucose 97 Calcium 8.2 L Phosphorus 2.2 L Magnesium 1.7 L Total Bilirubin 0.2 AST 14 L ALT 12 L Alkaline Phosphatase 86 Total Protein 5.6 L Albumin 1.9 L Random Vancomycin 12/26/17 12/26/17 12/26/17 06:43 07:25 07:25 WBC 6.3 RBC 2.89 L Hgb 8.0 L Hct 24.7 L MCV 85.8 MCH 27.7 MCHC 32.3 RDW 13.7 Plt Count 213 MPV 8.1 Sodium Potassium Chloride Carbon Dioxide Anion Gap BUN Creatinine Creat Clearance w eGFR POC Glucometer 110 Random Glucose Calcium Phosphorus Magnesium Total Bilirubin AST ALT Alkaline Phosphatase Total Protein Albumin Random Vancomycin 12.5 L 12/26/17 11:04 WBC RBC Hgb Hct MCV MCH MCHC RDW Plt Count MPV Sodium Potassium Chloride Carbon Dioxide Anion Gap BUN Creatinine Creat Clearance w eGFR POC Glucometer 138 Random Glucose Calcium Phosphorus Magnesium Total Bilirubin AST ALT Alkaline Phosphatase Total Protein Albumin Random Vancomycin Active Medications Generic Name Dose Route Start Last Admin Trade Name Freq PRN Reason Stop Dose Admin Acetaminophen 650 mg 12/22/17 21:20 12/26/17 00:54 Tylenol - PO 650 mg Q6H PRN Administration FEVER Docusate Sodium 100 mg 12/23/17 10:00 12/26/17 09:35 Colace - PO 100 mg DAILY CHRIS Administration Gabapentin 300 mg 12/22/17 22:00 12/26/17 09:34 Neurontin - PO 300 mg BID CHRIS Administration Heparin Sodium (Porcine) 5,000 unit 12/23/17 22:00 12/26/17 06:49 Heparin - SQ 5,000 unit TID CHRIS Administration Ceftriaxone Sodium 1 gm/ 50 mls @ 100 mls/hr 12/25/17 14:00 09/28/18 09:36 Dextrose IVPB 100 mls/hr DAILY CHRIS Administration Protocol Vancomycin HCl 1,000 mg/ 250 mls @ 166.667 mls/hr 12/27/17 11:45 Dextrose IVPB Q12H CHRIS Protocol Vancomycin HCl 1 gm in 200 mls @ 133.333 mls/hr 12/26/17 12:00 Vancomycin 1 Gm Premix - IVPB 12/27/17 13:29 BID@0000,1200 [facility] Insulin Aspart 1 vial 12/22/17 16:30 12/26/17 12:22 Novolog Vial Sliding Scale - SQ 2 units ACHS CHRIS Administration Protocol Levothyroxine Sodium 75 mcg 12/23/17 07:00 12/26/17 06:49 Synthroid - PO 75 mcg DAILY@0700 CHRIS Administration Multivitamins/Minerals/Vitamin C 1 tab 12/23/17 10:00 12/26/17 09:34 Tab-A-Vit - PO 1 tab DAILY CHRIS Administration Oxycodone HCl 10 mg 12/26/17 10:29 Roxicodone - PO Q6H PRN PAIN LEVEL 4 - 6 Senna 1 tab 12/24/17 22:00 12/25/17 21:47 Senna - PO 1 tab HS CHRIS Administration IMAGING: Chest Xray: No acute infiltrate, pleural effusion. CT abdomen, pelvis: Patient is s/p right urethral stent without hydronephrosis, and ileal conduit noted within LLQ. Right retroperitoneal mass noted stable since 2012. No acute abdominal or pelvic pathology. Cardiac ECHO shows normal left ventricular size, thickness, and function. Trace MR, trace TR. Mild aortic root dilation. No pericardial effusion. ASSESSMENT/PLAN: Patient is a 67 year old female with history of hypertension, DM, kidney stone s /p ESWL, urethral stricture, and paraplegia presents for complaint of fevers and chills for the past week. Urosepsis -Likely secondary to healthcare associated UTI -Patient is POD #4 s/p right retrograde pyelogram and right stent removal. -ID consult (Dr. Kruger) appreciated: Reinstate Vancomycin 1 gram Q24H Rocephin 1gm IV Q24H (day 2) -Blood cultures grow MRSA, coagulase negative Staph -Repeat blood cultures negative for growth. Patient will require 4 weeks vancomycin if cultures remain negative. -Urine cultures grow MRSA, Enterococcus faecalis, E. coli. -Oxycodone 10mg Q6H PRN -Zofran 4mg Q6H PRN Shortness of breath -Chest xray shows: Platelike atelectasis left lower lobe. No pleural effusion, pneumothorax, pneumonia. -IV fluids stopped. Will encourage judicious oral hydration. -Incentive spirometer. Anxiety -Valium 5mg PO Q24H PRN Hypothyroidism -Synthroid 0.075mg PO daily Sacral decubitus ulcer -Wound care consult appreciated: will continue optifoam dressings. -Encourage maintaining the area clean, with frequent turning -Air mattress accumax pump Diabetes -Hold home medications -ISS -BGM ACHS -Gabapentin 300mg PO BID for neuropathy -A1C 8.6 FEN -IV fluids stopped due to shortness of breath. Will encourage oral hydration. -Will follow CMP -Diabetic diet Prophylaxis -Heparin 5000units subq TID Disposition -Continue care in medical surgical floor. Visit type - Emergency Visit Emergency Visit: Yes ED Registration Date: 12/20/17 Care time: The patient presented to the Emergency Department on the above date and was hospitalized for further evaluation of their emergent condition. - New Patient This patient is new to me today: No - Critical Care Critical Care patient: No - Discharge Referral Referred to [facility] Med [facility] No
--- NOTE | 2017-12-26 13:43 | PN ---
Progress Note (short form) - Note Progress Note: feels well stent removed Vital Signs Period Temp Pulse Resp BP Sys/Prather Pulse Ox Last 24 Hr 98.1 F-99.9 F 64-79 18- 112-157/43-92 96 cor-rrr lungs clear abd soft,+urostomy ext no edema CBC, BMP 12/26/17 07:25 12/26/17 06:00 Microbiology 12/22/17 09:20 Blood - Peripheral Venous Blood Culture - Preliminary NO GROWTH OBTAINED AFTER 96 HOURS, INCUBATION TO CONTINUE FOR 1 DAYS. 12/22/17 09:55 Blood - Peripheral Venous Blood Culture - Preliminary NO GROWTH OBTAINED AFTER 96 HOURS, INCUBATION TO CONTINUE FOR 1 DAYS. 12/24/17 07:45 Blood - Peripheral Venous Blood Culture - Preliminary NO GROWTH OBTAINED AFTER 48 HOURS, INCUBATION TO CONTINUE FOR 3 DAYS. 12/24/17 07:50 Blood - Peripheral Venous Blood Culture - Preliminary NO GROWTH OBTAINED AFTER 48 HOURS, INCUBATION TO CONTINUE FOR 3 DAYS. 12/20/17 16:15 Blood - Peripheral Venous Blood Culture - Final NO GROWTH AFTER 5 DAYS INCUBATION 12/20/17 16:15 Blood - Peripheral Venous Blood Culture - Final S Aureus Staphylococcus Epidermidis 12/20/17 16:15 Urine - Urine Baldwin Urine Culture - Final S Aureus Enterococcus Faecalis Escherichia Coli a/p bacteremia- mrsa-day #5 antibiotics secondary to UTI rocephin to complete 7 days for uti resume vancomycin 1 gram daily and f/u levels before third dose repeat blood cultures negative echo negative will require 4 weeks vancomycin paraplegia callous of the finger unchanged d/w primary service d/w patient and son Problem List - Problems (1) Sepsis Code(s): A41.9 - SEPSIS, UNSPECIFIED ORGANISM Qualifiers: Sepsis type: sepsis due to unspecified organism Qualified Code(s): A41.9 - Sepsis, unspecified organism (2) Urinary tract infection Code(s): N39.0 - URINARY TRACT INFECTION, SITE NOT SPECIFIED Qualifiers: Urinary tract infection type: site unspecified Hematuria presence: with hematuria Qualified Code(s): N39.0 - Urinary tract infection, site not specified; R31.9 - Hematuria, unspecified (3) Cellulitis Code(s): L03.90 - CELLULITIS, UNSPECIFIED (4) Nephrolithiasis Code(s): N20.0 - CALCULUS OF KIDNEY
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
[2017-12-26] MEDS ORDERED: POLYETHYLENE GLYCOL 3350 119 GM BTL PO ONE (18:23)
[2017-12-26] MEDS: SENNOSIDES 8.6MG TABLET (FP) PO SCH (22:22)
[2017-12-27] MEDS: oxyCODONE HCL 5 MG TABLET PO PRN ×4 (02:12→21:00)
[2017-12-27] MEDS: INSULIN SLIDING SCALE (NOVOLOG) 1 VIAL SQ SCH ×4 (06:52→21:02)
[2017-12-27] MEDS: HEPARIN NA (PORCINE) 5,000 UNITS/ML 1ML VIAL SQ SCH ×3 (06:52→21:00)
[2017-12-27] MEDS: LEVOTHYROXINE NA 75 MCG TABLET (FP) PO SCH (06:52)
[2017-12-27 08:09] LABS: ALBUMIN 2.2 g/dl (3.4-5.0); ALK PHOS 101 U/L (45-117); ANION GAP 8 MMOL/L (8-16); BILIRUBIN,TOTAL 0.2 mg/dL (0.2-1); BLOOD UREA NITROGEN 6 mg/dL (7-18); CALCIUM 8.6 mg/dL (8.5-10.1); CHLORIDE 111 mmol/L (98-107); CO2 24 mmol/L (21-32); CREATININE 0.6 mg/dL (0.55-1.3); GLUCOSE,RANDOM 112 mg/dL (74-106); MAGNESIUM 1.8 mg/dL (1.8-2.4); PHOSPHOROUS 3.4 mg/dL (2.5-4.9); POTASSIUM 4.2 mmol/L (3.5-5.1); SGOT/AST 18 U/L (15-37); SGPT/ALT 13 U/L (13-61); SODIUM 143 mmol/L (136-145); TOT PROT 6.4 g/dl (6.4-8.2)
[2017-12-27 08:14] LABS: HEMATOCRIT 28.1 % (32.4-45.2); MCH 27.4 pg (25.7-33.7); MEAN CELL VOLUME 85.6 fl (80-96); MEAN PLT VOLUME 8.6 fl (7.5-11.1); PLATELET COUNT 244 K/MM3 (134-434); RBC 3.29 M/mm3 (3.60-5.2); RDW 14.3 % (11.6-15.6); WHITE BLOOD COUNT 7.2 K/mm3 (4.0-10.0)
[2017-12-27] MEDS ORDERED: cefTRIAXone SODIUM 1 GM VIAL ONE (09:14)
[2017-12-27] MEDS ORDERED: DEXTROSE 5%-WATER - 50 ML IVPB ONE (09:15)
[2017-12-27] MEDS: GABAPENTIN 300 MG CAPSULE (FP) PO SCH ×2 (09:21→21:00)
[2017-12-27] MEDS: MULTIVITAMINS (DAILY MVI) TABLET (FP) PO SCH (09:22)
[2017-12-27] MEDS: DOCUSATE SODIUM 100 MG CAPSULE (FP) PO SCH (09:22)
[2017-12-27] MEDS: CEFTRIAXONE 1 GM in DEXTROSE 5%-WATER - 50 ML IVPB SCH (09:22)
[2017-12-27] MEDS ORDERED: VANCOMYCIN 1,000 MG in DEXTROSE 5%-WATER - 250 ML IVPB SCH (11:45)
[2017-12-27] MEDS ORDERED: VANCOMYCIN 1 GM PREMIX - 1 GM/200 ML BAG IVPB SCH (13:00)
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
[2017-12-27] MEDS ORDERED: PT OWN MED DRAWER 7, Y5N ONE (20:48)
[2017-12-27] MEDS: SENNOSIDES 8.6MG TABLET (FP) PO SCH (21:00)
[2017-12-27] MEDS: ACETAMINOPHEN 325 MG TABLET (FP) PO PRN (21:01)
[2017-12-27] MEDS ORDERED: diazePAM 2 MG TABLET PO ONE (22:30)
[2017-12-28] MEDS: HEPARIN NA (PORCINE) 5,000 UNITS/ML 1ML VIAL SQ SCH ×3 (06:26→22:21)
[2017-12-28] MEDS: INSULIN SLIDING SCALE (NOVOLOG) 1 VIAL SQ SCH ×4 (06:27→22:29)
[2017-12-28] MEDS: LEVOTHYROXINE NA 75 MCG TABLET (FP) PO SCH (06:32)
[2017-12-28] MEDS ORDERED: cefTRIAXone SODIUM 1 GM VIAL ONE (08:23)
[2017-12-28] MEDS ORDERED: DEXTROSE 5%-WATER - 50 ML IVPB ONE (08:23)
[2017-12-28] MEDS: GABAPENTIN 300 MG CAPSULE (FP) PO SCH ×2 (09:36→22:22)
[2017-12-28] MEDS: oxyCODONE HCL 5 MG TABLET PO PRN ×3 (09:36→22:20)
[2017-12-28] MEDS: ACETAMINOPHEN 325 MG TABLET (FP) PO PRN (09:37)
[2017-12-28] MEDS: MULTIVITAMINS (DAILY MVI) TABLET (FP) PO SCH (09:37)
[2017-12-28] MEDS: DOCUSATE SODIUM 100 MG CAPSULE (FP) PO SCH (09:38)
[2017-12-28] MEDS: CEFTRIAXONE 1 GM in DEXTROSE 5%-WATER - 50 ML IVPB SCH (09:38)
--- NOTE | 2017-12-28 10:54 | PN ---
Physical Exam: SUBJECTIVE: Patient seen and examined at bedside this morning. Admits resolution of shortness of breath. She is POD # 6 s/p right retrograde pyelogram and right stent removal. She is draining clear-light yellow colored urine into urostomy bag this morning. Still complaint of generalized body pains worst at right side of neck. Denies fevers, shortness of breath, chest pain, palpitations, abdominal pain, nausea, vomiting, diarrhea. Patient expressed that she does not want diapers applied. OBJECTIVE: Vital Signs Period Temp Pulse Resp BP Sys/Prather Pulse Ox Last 24 Hr 98.4 F-99.5 F 71-86 18-18 99-160/60-96 96 GENERAL: Awake, alert, and fully oriented, in no acute distress. HEAD: Normal with no signs of trauma. EYES: Pupils equal, round and reactive to light. Extraocular movements intact, sclera anicteric, conjunctiva clear. EARS, NOSE, THROAT: Ears normal, nares patent, oropharynx clear without exudates. Moist mucous membranes. NECK: Supple without lymphadenopathy. LUNGS: Breath sounds equal, clear to auscultation bilaterally. No wheezes, and no crackles. No accessory muscle use. HEART: Regular rate and rhythm, normal S1 and S2 without murmur, rub or gallop. ABDOMEN: Soft, nontender, not distended, normoactive bowel sounds, no guarding, no rebound, no masses. No hepatomegaly or splenomegaly. Urostomy bag draining clear-light yellow urine. No erythema or drainage from insertion site. MUSCULOSKELETAL: No range of motion in b/l lower extremities. Tender to palpation at right and left sided neck. UPPER EXTREMITIES: 2+ radial pulses, warm, well-perfused. Strength 3/5 b/l upper extremities, limited due to pain. LOWER EXTREMITIES: 1+ dorsalis pedis pulses. No edema b/l. No sensation in b/l lower extremities. Strength 0/5 b/l lower extremities. NEUROLOGICAL: Cranial nerves II-XII intact. Normal speech. PSYCHIATRIC: Appropriate mood and affect. Cooperative. SKIN: Two sacral ulcers (stage 3-4) noted. Laboratory Results - last 24 hr 12/27/17 12/27/17 12/27/17 11:21 16:43 20:56 POC Glucometer 180 134 121 12/28/17 06:26 POC Glucometer 128 Active Medications Generic Name Dose Route Start Last Admin Trade Name Freq PRN Reason Stop Dose Admin Acetaminophen 650 mg 12/22/17 21:20 12/28/17 09:37 Tylenol - PO 650 mg Q6H PRN Administration FEVER Docusate Sodium 100 mg 12/23/17 10:00 12/28/17 09:38 Colace - PO 100 mg DAILY CHRIS Administration Gabapentin 300 mg 12/22/17 22:00 12/28/17 09:36 Neurontin - PO 300 mg BID CHRIS Administration Heparin Sodium (Porcine) 5,000 unit 12/23/17 22:00 12/28/17 06:26 Heparin - SQ 5,000 unit TID CH[facility]IS Administration Ceftriaxone Sodium 1 gm/ 50 mls @ 100 mls/hr 12/25/17 14:00 12/28/17 09:38 Dextrose IVPB 100 mls/hr DAILY CHRIS Administration Protocol Vancomycin HCl 1 gm in 200 mls @ 133.333 mls/hr 12/26/17 15:15 Vancomycin 1 Gm Premix - IVPB Q24H [facility]IS Protocol Insulin Aspart 1 vial 12/22/17 16:30 12/28/17 06:27 Novolog Vial Sliding Scale - SQ 2 units ACHS CH[facility]IS Administration Protocol Levothyroxine Sodium 75 mcg 12/23/17 07:00 12/28/17 06:32 Synthroid - PO 75 mcg DAILY@0700 [facility]IS Administration Multivitamins/Minerals/Vitamin C 1 tab 12/23/17 10:00 12/28/17 09:37 Tab-A-Vit - PO 1 tab DAILY [facility]IS Administration Oxycodone HCl 10 mg 12/26/17 10:29 12/28/17 09:36 Roxicodone - PO 10 mg Q6H PRN Administration PAIN LEVEL 4 - 6 Senna 1 tab 12/24/17 22:00 12/27/17 21:00 Senna - PO 1 tab HS CHRIS Administration IMAGING: Chest Xray: No acute infiltrate, pleural effusion. CT abdomen, pelvis: Patient is s/p right urethral stent without hydronephrosis, and ileal conduit noted within LLQ. Right retroperitoneal mass noted stable since 2012. No acute abdominal or pelvic pathology. Cardiac ECHO shows normal left ventricular size, thickness, and function. Trace MR, trace TR. Mild aortic root dilation. No pericardial effusion. ASSESSMENT/PLAN: Patient is a 67 year old female with history of hypertension, DM, kidney stone s /p ESWL, urethral stricture, and paraplegia presents for complaint of fevers and chills for the past week. Urosepsis -Likely secondary to healthcare associated UTI -Patient is POD #6 s/p right retrograde pyelogram and right stent removal. -ID consult (Dr. Kruger) appreciated: Reinstate Vancomycin 1 gram Q24H (day 3 ) Rocephin 1gm IV Q24H (day 4) -Blood cultures grow MRSA, coagulase negative Staph -Repeat blood cultures negative for growth. Patient will require 4 weeks vancomycin if cultures remain negative. -Urine cultures grow MRSA, Enterococcus faecalis, E. coli. -Oxycodone 10mg Q6H PRN -Zofran 4mg Q6H PRN Shortness of breath -Improved. Patient denies symptoms today. -Continue use of incentive spirometer. Anxiety -Valium 5mg PO Q24H PRN Hypothyroidism -Synthroid 0.075mg PO daily Sacral decubitus ulcer -Wound care consult appreciated: will continue optifoam dressings. -Encourage maintaining the area clean, with frequent turning -Air mattress accumax pump -NO diapers to be applied. Diabetes -Hold home medications -ISS -BGM ACHS -Gabapentin 300mg PO BID for neuropathy -A1C 8.6 FEN -No IV fluids. Will encourage oral hydration. -Will follow CMP -Diabetic diet Prophylaxis -Heparin 5000units subq TID Disposition -Continue care in medical surgical floor. Visit type - Emergency Visit Emergency Visit: Yes ED Registration Date: 12/20/17 Care time: The patient presented to the Emergency Department on the above date and was hospitalized for further evaluation of their emergent condition. - New Patient This patient is new to me today: No - Critical Care Critical Care patient: No - Discharge Referral Referred to [facility] No
[2017-12-28] MEDS ORDERED: INSULIN (NOVOLOG) ASPART 100 UNITS/ML 10ML VIAL ONE (11:24)
--- NOTE | 2017-12-28 12:11 | PN ---
Progress Note, Physician History of Present Illness: Awake, alert No complaints denies pain Afebrile vancomycin level noted - Current Medication List Current Medications: Active Medications Acetaminophen (Tylenol -) 650 mg PO Q6H PRN PRN Reason: FEVER Last Admin: 12/28/17 09:37 Dose: 650 mg Docusate Sodium (Colace -) 100 mg PO DAILY [facility] Last Admin: 12/28/17 09:38 Dose: 100 mg Gabapentin (Neurontin -) 300 mg PO BID [facility] Last Admin: 12/28/17 09:36 Dose: 300 mg Heparin Sodium (Porcine) (Heparin -) 5,000 unit SQ TID [facility] Last Admin: 12/28/17 06:26 Dose: 5,000 unit Ceftriaxone Sodium 1 gm/ (Dextrose) 50 mls @ 100 mls/hr IVPB DAILY [facility]; Protocol Last Admin: 12/28/17 09:38 Dose: 100 mls/hr Vancomycin HCl 1,000 mg/ (Dextrose) 250 mls @ 166.667 mls/hr IVPB Q12H [facility]; Protocol Insulin Aspart (Novolog Vial Sliding Scale -) 1 vial SQ ACHS [facility]; Protocol Last Admin: 12/28/17 11:33 Dose: 4 units Levothyroxine Sodium (Synthroid -) 75 mcg PO DAILY@0700 [facility] Last Admin: 12/28/17 06:32 Dose: 75 mcg Multivitamins/Minerals/Vitamin C (Tab-A-Vit -) 1 tab PO DAILY [facility] Last Admin: 12/28/17 09:37 Dose: 1 tab Oxycodone HCl (Roxicodone -) 10 mg PO Q6H PRN PRN Reason: PAIN LEVEL 4 - 6 Last Admin: 12/28/17 09:36 Dose: 10 mg Senna (Senna -) 1 tab PO HS [facility] Last Admin: 12/27/17 21:00 Dose: 1 tab - Objective Vital Signs: Vital Signs Temperature 98.4 F 12/28/17 06:14 Pulse Rate 79 12/28/17 06:14 Respiratory Rate 18 12/28/17 06:14 Blood Pressure 138/69 12/28/17 06:14 O2 Sat by Pulse Oximetry (%) 96 12/27/17 21:00 Constitutional: Yes: No Distress Cardiovascular: Yes: Regular Rate and Rhythm, S1, S2 Respiratory: Yes: CTA Bilaterally Gastrointestinal: Yes: Normal Bowel Sounds, Soft. No: Tenderness Edema: No Labs: CBC, BMP 12/27/17 06:30 12/27/17 06:30 INR, PTT INR 1.27 (0.83-1.09) H 12/20/17 16:15 Assessment/Plan MRSA bacteremia UTI S/P nephrolithiasis Continue vancomycin/ ceftriaxone
[2017-12-28] MEDS: VANCOMYCIN 1 GM PREMIX - 1 GM/200 ML BAG IVPB SCH (14:11)
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
[2017-12-28] MEDS: SENNOSIDES 8.6MG TABLET (FP) PO SCH (22:20)
[2017-12-28] MEDS ORDERED: diazePAM 2 MG TABLET PO ONE (23:33)
[2017-12-29] MEDS: VANCOMYCIN 1 GM PREMIX - 1 GM/200 ML BAG IVPB SCH ×2 (01:44→15:17)
[2017-12-29] MEDS ORDERED: PT OWN MED DRAWER 7, Y5N ONE (02:24)
[2017-12-29] MEDS: HEPARIN NA (PORCINE) 5,000 UNITS/ML 1ML VIAL SQ SCH ×2 (06:03→14:18)
[2017-12-29] MEDS: oxyCODONE HCL 5 MG TABLET PO PRN ×2 (06:05→12:35)
[2017-12-29] MEDS: LEVOTHYROXINE NA 75 MCG TABLET (FP) PO SCH (06:06)
[2017-12-29] MEDS: INSULIN SLIDING SCALE (NOVOLOG) 1 VIAL SQ SCH ×3 (06:16→16:15)
[2017-12-29 06:48] LABS: HEMATOCRIT 29.7 % (32.4-45.2); HEMOGLOBIN 9.7 GM/dL (10.7-15.3); MCHC 32.8 g/dl (32.0-36.0); MEAN CELL VOLUME 85.4 fl (80-96); MEAN PLT VOLUME 7.7 fl (7.5-11.1); PLATELET COUNT 306 K/MM3 (134-434); RBC 3.48 M/mm3 (3.60-5.2); RDW 14.2 % (11.6-15.6); WHITE BLOOD COUNT 7.4 K/mm3 (4.0-10.0)
[2017-12-29 07:29] LABS: ALBUMIN 2.4 g/dl (3.4-5.0); ALK PHOS 99 U/L (45-117); ANION GAP 7 MMOL/L (8-16); BILIRUBIN,TOTAL 0.2 mg/dL (0.2-1); BLOOD UREA NITROGEN 8 mg/dL (7-18); CALCIUM 8.8 mg/dL (8.5-10.1); CHLORIDE 105 mmol/L (98-107); CO2 30 mmol/L (21-32); CREATININE 0.6 mg/dL (0.55-1.3); GLUCOSE,RANDOM 122 mg/dL (74-106); MAGNESIUM 1.8 mg/dL (1.8-2.4); PHOSPHOROUS 3.3 mg/dL (2.5-4.9); POTASSIUM 4.1 mmol/L (3.5-5.1); SGOT/AST 19 U/L (15-37); SGPT/ALT 14 U/L (13-61); SODIUM 142 mmol/L (136-145); TOT PROT 7.1 g/dl (6.4-8.2)
[2017-12-29] MEDS ORDERED: cefTRIAXone SODIUM 1 GM VIAL ONE (08:33)
[2017-12-29] MEDS ORDERED: DEXTROSE 5%-WATER - 50 ML IVPB ONE (08:33)
[2017-12-29 09:57] VITALS: BP 90/47; PULSE 70; TEMP 98.1
[2017-12-29] MEDS: DOCUSATE SODIUM 100 MG CAPSULE (FP) PO SCH (09:58)
[2017-12-29] MEDS: CEFTRIAXONE 1 GM in DEXTROSE 5%-WATER - 50 ML IVPB SCH (09:58)
[2017-12-29] MEDS: GABAPENTIN 300 MG CAPSULE (FP) PO SCH (09:59)
[2017-12-29] MEDS: MULTIVITAMINS (DAILY MVI) TABLET (FP) PO SCH (09:59)
[2017-12-29] MEDS ORDERED: PICC LINE 8 ML FLUSH PROTOCOL IVPUSH PRN (11:47)
--- NOTE | 2017-12-29 13:46 | PN ---
Progress Note (short form) - Note Progress Note: feels well stent removed feels well Vital Signs Period Temp Pulse Resp BP Sys/Prather Pulse Ox Last 24 Hr 98.1 F-99.2 F 69-72 18-18 90-126/39-68 94 cor-rrr lungs clear abd soft,nt +urostomy ext no edema CBC, BMP 12/29/17 06:00 12/29/17 06:00 Microbiology 12/24/17 07:45 Blood - Peripheral Venous Blood Culture - Final NO GROWTH AFTER 5 DAYS INCUBATION 12/24/17 07:50 Blood - Peripheral Venous Blood Culture - Final NO GROWTH AFTER 5 DAYS INCUBATION 12/22/17 09:20 Blood - Peripheral Venous Blood Culture - Final NO GROWTH AFTER 5 DAYS INCUBATION 12/22/17 09:55 Blood - Peripheral Venous Blood Culture - Final NO GROWTH AFTER 5 DAYS INCUBATION 12/20/17 16:15 Blood - Peripheral Venous Blood Culture - Final NO GROWTH AFTER 5 DAYS INCUBATION 12/20/17 16:15 Blood - Peripheral Venous Blood Culture - Final S Aureus Staphylococcus Epidermidis 12/20/17 16:15 Urine - Urine [place] Urine Culture - Final Mr S Aureus Enterococcus Faecalis Escherichia Coli Current Medications Acetaminophen (Tylenol -) 650 mg PO Q6H PRN PRN Reason: FEVER Last Admin: 12/28/17 09:37 Dose: 650 mg Docusate Sodium (Colace -) 100 mg PO DAILY [facility] Last Admin: 12/29/17 09:58 Dose: Not Given Gabapentin (Neurontin -) 300 mg PO BID [facility] Last Admin: 12/29/17 09:59 Dose: 300 mg Heparin Sodium (Porcine) (Heparin -) 5,000 unit SQ TID [facility] Last Admin: 12/29/17 06:03 Dose: 5,000 unit IV Flush (Picc Line Flush) 8 ml IVPUSH PRN PRN PRN Reason: Protocol Ceftriaxone Sodium 1 gm/ (Dextrose) 50 mls @ 100 mls/hr IVPB DAILY [facility]; Protocol Last Admin: 12/29/17 09:58 Dose: 100 mls/hr Vancomycin HCl (Vancomycin 1 Gm Premix -) 1 gm in 200 mls @ 133.333 mls/hr IVPB Q12H [facility]; Protocol Last Admin: 12/29/17 01:44 Dose: 133.333 mls/hr Insulin Aspart (Novolog Vial Sliding Scale -) 1 vial SQ ACHS [facility]; Protocol Last Admin: 12/29/17 11:24 Dose: 4 units Levothyroxine Sodium (Synthroid -) 75 mcg PO DAILY@0700 [facility] Last Admin: 12/29/17 06:06 Dose: 75 mcg Multivitamins/Minerals/Vitamin C (Tab-A-Vit -) 1 tab PO DAILY [facility] Last Admin: 12/29/17 09:59 Dose: 1 tab Oxycodone HCl (Roxicodone -) 10 mg PO Q6H PRN PRN Reason: PAIN LEVEL 4 - 6 Last Admin: 12/29/17 12:35 Dose: 10 mg Senna (Senna -) 1 tab PO HS [facility] Last Admin: 12/28/17 22:20 Dose: 1 tab a/p bacteremia- mrsa-day #8 antibiotics secondary to UTI rocephin to complete 7 days for uti repeat blood cultures negative echo negative will require 4 weeks vancomycin -will switch to 1250 daily needs cbc, bmp, vancomycin trough on - and then weekly paraplegia callous of the finger unchanged d/w primary service- regarding labs and vancomycin trough levels should f/ul with PMD can f/u with us in our office with Dr Garcia [phone] if needed Problem List - Problems (1) Sepsis Code(s): A41.9 - SEPSIS, UNSPECIFIED ORGANISM Qualifiers: Sepsis type: sepsis due to unspecified organism Qualified Code(s): A41.9 - Sepsis, unspecified organism (2) Urinary tract infection Code(s): N39.0 - URINARY TRACT INFECTION, SITE NOT SPECIFIED Qualifiers: Urinary tract infection type: site unspecified Hematuria presence: with hematuria Qualified Code(s): N39.0 - Urinary tract infection, site not specified; R31.9 - Hematuria, unspecified (3) Cellulitis Code(s): L03.90 - CELLULITIS, UNSPECIFIED (4) Nephrolithiasis Code(s): N20.0 - CALCULUS OF KIDNEY
[2017-12-29] MEDS: ACETAMINOPHEN 325 MG TABLET (FP) PO PRN (15:17)
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
--- NOTE | 2017-12-29 16:03 | DS ---
Physical Exam: SUBJECTIVE: Patient seen and examined at bedside this morning. Admits resolution of shortness of breath. She is POD # 7 s/p right retrograde pyelogram and right stent removal. She is draining clear-light yellow colored urine into urostomy bag this morning. Denies fevers, shortness of breath, chest pain, palpitations, abdominal pain, nausea, vomiting, diarrhea. Patient expressed that she does not want diapers applied. OBJECTIVE: Vital Signs Period Temp Pulse Resp BP Sys/Prather Pulse Ox Last 24 Hr 98.1 F-99.2 F 70-72 18-18 90-126/47-68 94 PHYSICAL EXAM GENERAL: Awake, alert, and fully oriented, in no acute distress. HEAD: Normal with no signs of trauma. EYES: Pupils equal, round and reactive to light. Extraocular movements intact, sclera anicteric, conjunctiva clear. EARS, NOSE, THROAT: Ears normal, nares patent, oropharynx clear without exudates. Moist mucous membranes. NECK: Supple without lymphadenopathy. LUNGS: Breath sounds equal, clear to auscultation bilaterally. No wheezes, and no crackles. No accessory muscle use. HEART: Regular rate and rhythm, normal S1 and S2 without murmur, rub or gallop. ABDOMEN: Soft, nontender, not distended, normoactive bowel sounds, no guarding, no rebound, no masses. No hepatomegaly or splenomegaly. Urostomy bag draining clear-light yellow urine. No erythema or drainage from insertion site. MUSCULOSKELETAL: No range of motion in b/l lower extremities. Tender to palpation at right and left sided neck. UPPER EXTREMITIES: 2+ radial pulses, warm, well-perfused. Strength 3/5 b/l upper extremities, limited due to pain. LOWER EXTREMITIES: 1+ dorsalis pedis pulses. No edema b/l. No sensation in b/l lower extremities. Strength 0/5 b/l lower extremities. NEUROLOGICAL: Cranial nerves II-XII intact. Normal speech. PSYCHIATRIC: Appropriate mood and affect. Cooperative. SKIN: Two sacral ulcers (stage 3-4) noted. LABS Laboratory Results - last 24 hr 12/28/17 12/28/17 12/29/17 17:03 22:25 06:00 WBC 7.4 RBC 3.48 L Hgb 9.7 L Hct 29.7 L MCV 85.4 MCH 28.0 MCHC 32.8 RDW 14.2 Plt Count 306 D MPV 7.7 D Sodium Potassium Chloride Carbon Dioxide Anion Gap BUN Creatinine Creat Clearance w eGFR POC Glucometer 134 157 Random Glucose Calcium Phosphorus Magnesium Total Bilirubin AST ALT Alkaline Phosphatase Total Protein Albumin 12/29/17 12/29/17 12/29/17 06:00 06:02 11:23 WBC RBC Hgb Hct MCV MCH MCHC RDW Plt Count MPV Sodium 142 Potassium 4.1 Chloride 105 Carbon Dioxide 30 Anion Gap 7 L BUN 8 Creatinine 0.6 Creat Clearance w eGFR > 60 POC Glucometer 125 151 Random Glucose 122 H Calcium 8.8 Phosphorus 3.3 Magnesium 1.8 Total Bilirubin 0.2 AST 19 ALT 14 Alkaline Phosphatase 99 Total Protein 7.1 Albumin 2.4 L HOSPITAL COURSE: Date of Admission:12/20/17 Date of Discharge: 12/29/17 Patient is a 67 year old female with history of hypertension, DM, kidney stone s /p ESWL, urethral stricture, and paraplegia presents for complaint of fevers and chills for one week. She was admitted for Sepsis secondary to UTI. Right- sided urethral stent was surgically removed. Blood cultures grew MRSA bateremia and she was started on Vancomycin. Repeat cultures negative for growth. Pain treated with Oxycodone, Morphine, and Tylenol. She was discharged home with her 24 hour personal care home administrator, with PICC line and Vancomycin (through infusion [email or web address]) for additional 21 days to complete 4 week course per ID recommendation. Instructed to follow up with PCP, infectious disease, and Urologist within one week of discharge. Instructed to obtain vancomycin trough before 4th dose and send results to Dr. Kruger. Minutes to complete discharge: 45 Discharge Summary Reason For Visit: UTI, SEPSIS Current Active Problems Cellulitis (Acute) Sepsis (Acute) Urinary tract infection (Acute) Condition: Stable - Instructions Diet, Activity, Other Instructions: You were admitted for infection within the urinary tract and treated with antibiotics. Also you were found to have MRSA infection in your blood and therefore you are getting a correction antibiotic; Vancomycin. Weekly labs needed : CMP, CBC, Mag and phos levels, also please follow with Infectious disease doctor. Level of Vancomycin is needed at 4th dose of vancomycin due on (January 01) morning at least 30mins before your drug administration. The urologist Dr. Tate performed surgery to remove the stent from your right kidney. Continue taking your home medications as directed. You will need intravenous antibiotics Vancomycin [id number] every day hours for the next 21 days. It is important to follow up with your primary care physician, and urologist ( Dr. Tate) within one week of discharge. Please return to the nearest emergency department if you experience fevers, chills, shortness of breath, chest pain, bloody urine. Referrals: Tim Tate MD [Staff Physician] - 1 Week Christy Kruger MD [Staff Physician] - 1 Week Shon Bond MD [Primary Care Provider] - 1 Week Disposition: [facility]NS/HOME HEALTH CARE - Home Medications Comprehensive Discharge Medication List: Ambulatory Orders Gabapentin [Neurontin] 300 mg PO BID 09/07/13 Diazepam [Valium] 5 mg PO DAILY PRN 11/04/17 Multivitamin [One Daily] 1 each PO DAILY 12/05/17 Levothyroxine [Synthroid -] 75 mcg PO DAILY@0700 12/21/17 Oxycodone HCl/Acetaminophen [Percocet 10-325 mg Tablet] 1 tab PO QID PRN Miscellaneous Medical Supply [Outpatient Order] 1 each ASDIR #1 misc Miscellaneous Medical Supply [Outpatient Order] 1 each ASDIR #1 misc Miscellaneous Medical Supply [Outpatient Order] 1 each ASDIR #1 misc Vancomycin 1,250 mg IV DAILY 21 Days #21 vial 12/29/17 This patient is new to me today: No Emergency Visit: Yes ED Registration Date: 12/20/17 Care time: The patient presented to the Emergency Department on the above date and was hospitalized for further evaluation of their emergent condition. Critical Care patient: No - Discharge Referral Referred to [facility] Med P.C.: No
== END 2017-12-29 18:05 | disposition home health service (06) | DRG 872 ==
LOC: JER 15:17 → JERBED 18:07 → J8W 23:02 → J7W 12-22 16:58
PROVIDERS: ADMIT Internal Medicine; ATTEND Internal Medicine
PROC: 0TP98DZ Removal of Intraluminal Device from Ureter, Via Natural or Artificial Opening Endoscopic (ICD-10-PCS; 2017-12-22)
PROC: BT04ZZZ Plain Radiography of Kidneys, Ureters and Bladder (ICD-10-PCS; 2017-12-22)
PROC: 02HV33Z Insertion of Infusion Device into Superior Vena Cava, Percutaneous Approach (ICD-10-PCS; principal; 2017-12-29)
DX: A41.9 Sepsis, unspecified organism (principal); N39.0 Urinary tract infection, site not specified; C85.90 Non-Hodgkin lymphoma, unspecified, unspecified site; G82.20 Paraplegia, unspecified; N13.30 Unspecified hydronephrosis; T83.598A Infection and inflammatory reaction due to other prosthetic device, implant and graft in urinary system, initial encounter; T83.89XA Other specified complication of genitourinary prosthetic devices, implants and grafts, initial encounter; E87.2 Acidosis; E03.9 Hypothyroidism, unspecified; E11.40 Type 2 diabetes mellitus with diabetic neuropathy, unspecified; N20.0 Calculus of kidney; R06.02 Shortness of breath; F41.9 Anxiety disorder, unspecified; K21.9 Gastro-esophageal reflux disease without esophagitis; I10 Essential (primary) hypertension; E11.65 Type 2 diabetes mellitus with hyperglycemia; A49.02 Methicillin resistant Staphylococcus aureus infection, unspecified site; L03.011 Cellulitis of right finger; Y83.9 Surgical procedure, unspecified as the cause of abnormal reaction of the patient, or of later complication, without mention of misadventure at the time of the procedure; L89.152 Pressure ulcer of sacral region, stage 2; L89.312 Pressure ulcer of right buttock, stage 2
CPT/HCPCS: 36415; 36569; 71045-TC-FY; 74176-TC; 77001-TC-FY; 80048; 80053; 81003; 81015; 82962; 83036; 83605; 83735; 84100; 84484; 85025; 85027; 85610; 85730; 87040; 87086; 87186; 88300-TC; 90688; 93005; 93010; 93306-TC; 94010; 94760; 99284-25; C1751; G0008; G0480; J0131; J1644; J7030

== ENCOUNTER 2020-11-04 18:21 | Emergency (ER) | payer OTHER ==
[2020-11-04 18:45] VITALS: BP 82/55; PULSE 72; TEMP 98.1; BMI 23.0
[2020-11-04 20:08] LABS: EPITHELIAL CELLS FEW /hpf
[2020-11-04 20:21] LABS: BASO % 0.5 % (0-2.0); HEMATOCRIT 38.6 % (32.4-45.2); HEMOGLOBIN 12.7 GM/dl (10.7-15.3); LYMPH % 17.4 % (8-40); MCH 29.7 pg (25.7-33.7); MEAN CELL VOLUME 89.9 fl (80-96); MONO % 4.3 % (3.8-10.2); NEUT % 75.8 % (42.8-82.8); PLATELET COUNT 161 10^3/uL (134-434); RBC 4.29 M/mm3 (3.60-5.2); RDW 12.9 % (11.6-15.6); WHITE BLOOD COUNT 9.4 K/mm3 (4.0-10.8)
[2020-11-04 20:22] LABS: ALBUMIN 3.2 g/dl (3.4-5.0); BILIRUBIN,TOTAL 0.7 mg/dl (0.2-1); CALCIUM 8.7 mg/dl (8.5-10); CREATININE 0.6 mg/dl (0.55-1.3); TOT PROT 6.9 g/dl (6.4-8.2)
[2020-11-04] MEDS ORDERED: HYDROmorphone HCL CARPU-JECT 1 MG/1 ML DISP.SYRIN IVPUSH ONE (21:11)
[2020-11-04] MEDS ORDERED: HYDROmorphone HCL/PF 1 MG/ML VIAL ONE (21:13)
[2020-11-04] MEDS ORDERED: MAGNESIUM CITRATE 300 ML BOTTLE PO ONE (22:16)
[2020-11-04] MEDS ORDERED: MAGNESIUM CITRATE 300 ML BOTTLE ONE (22:17)
== END 2020-11-04 22:26 | disposition home or self-care (01) ==
LOC: FER 18:21
PROC: 3E033GC Introduction of Other Therapeutic Substance into Peripheral Vein, Percutaneous Approach (ICD-10-PCS; principal; 2020-11-04)
DX: K59.00 Constipation, unspecified (principal)
CPT/HCPCS: 36415; 74176-TC; 74190-TC-FY; 80053; 81003; 81015; 83605; 85025; 87086; 87186; 93005; 99285-25; C9803; U0003; U0005

== ENCOUNTER 2021-02-03 11:54 | Emergency (ER) | payer OTHER ==
[2021-02-03 12:02] VITALS: BP 139/72; PULSE 93; TEMP 99; BMI 610.2
[2021-02-03] MEDS ORDERED: SODIUM CHLORIDE 1,000 ML IV STA (13:08)
[2021-02-03] MEDS ORDERED: oxyCODONE HCL 5 MG TABLET PO ONE (13:42)
[2021-02-03] MEDS ORDERED: oxyCODONE HCL 5 MG TABLET ONE (13:44)
[2021-02-03 13:48] LABS: BASO % 0.6 % (0-2.0); EOS % 0.2 % (0-4.5); HEMATOCRIT 36.9 % (32.4-45.2); HEMOGLOBIN 11.9 GM/dl (10.7-15.3); LYMPH % 9.3 % (8-40); MCH 29.2 pg (25.7-33.7); MCHC 32.4 g/dl (32.0-36.0); MEAN CELL VOLUME 90.1 fl (80-96); MEAN PLT VOLUME 8.9 fl (7.5-11.1); MONO % 8.5 % (3.8-10.2); NEUT % 81.4 % (42.8-82.8); PLATELET COUNT 156 10^3/uL (134-434); RBC 4.09 M/mm3 (3.60-5.2); RDW 12.7 % (11.6-15.6)
[2021-02-03 14:04] LABS: CREATININE 0.6 mg/dl (0.55-1.3)
[2021-02-03 14:05] LABS: ALBUMIN 3.2 g/dl (3.4-5.0); BILIRUBIN,TOTAL 0.6 mg/dl (0.2-1); CALCIUM 8.5 mg/dl (8.5-10); TOT PROT 6.6 g/dl (6.4-8.2)
== END 2021-02-03 17:18 | disposition home or self-care (01) ==
LOC: FER 11:54
PROC: 3E0337Z Introduction of Electrolytic and Water Balance Substance into Peripheral Vein, Percutaneous Approach (ICD-10-PCS; principal; 2021-02-03)
DX: R10.84 Generalized abdominal pain (principal)
CPT/HCPCS: 36415; 71045-TC-FY; 74176-TC; 80053; 83690; 85025; 99285-25

== ENCOUNTER 2021-06-07 13:11 | Inpatient (IN) | payer OTHER ==
[2021-06-07] MEDS ORDERED: SODIUM CHLORIDE 1,000 ML IV STA (13:51)
[2021-06-07] MEDS ORDERED: ONDANSETRON 4 MG/2 ML VIAL IVPUSH ONE (14:03)
[2021-06-07] MEDS ORDERED: ONDANSETRON 4 MG/2 ML VIAL ONE (14:08)
[2021-06-07 14:53] LABS: BASO % 0.3 % (0-2.0); EOS % 0.6 % (0-4.5); HEMATOCRIT 34.1 % (32.4-45.2); HEMOGLOBIN 11.3 GM/dL (10.7-15.3); LYMPH % 5.6 % (8-40); MCH 29.1 pg (25.7-33.7); MCHC 33.1 g/dl (32.0-36.0); MEAN CELL VOLUME 87.9 fl (80-96); MEAN PLT VOLUME 7.6 fl (7.5-11.1); MONO % 3.2 % (3.8-10.2); NEUT % 90.3 % (42.8-82.8); RBC 3.87 M/mm3 (3.60-5.2); RDW 13.1 % (11.6-15.6); WHITE BLOOD COUNT 5.9 K/mm3 (4.0-10.0)
[2021-06-07 15:15] LABS: CALCIUM 8.7 mg/dL (8.5-10.1)
[2021-06-07 15:16] LABS: BLOOD UREA NITROGEN 16.4 mg/dL (7-18)
[2021-06-07 15:19] LABS: CREATININE 0.8 mg/dL (0.55-1.3)
[2021-06-07 15:20] LABS: BILIRUBIN,TOTAL 0.2 mg/dL (0.2-1)
[2021-06-07] MEDS ORDERED: ACETAMINOPHEN 1000 MG/100 ML BAG IVPB ONE (15:40)
[2021-06-07 15:51] LABS: PLATELET ESTIMATE DECREASED
[2021-06-07] MEDS ORDERED: oxyCODONE HCL 5 MG TABLET ONE (16:00)
[2021-06-07] MEDS ORDERED: ACETAMINOPHEN INJECTION 100 ML IVPB ONE (16:00)
[2021-06-07] MEDS: oxyCODONE HCL 5 MG TABLET PO PRN (16:07)
[2021-06-07 16:22] LABS: EPI CELLS 0 /uL (0-25.1); HYALINE CASTS 5 /uL (0-3.1); URINE APPEARANCE CLOUDY; URINE BACTERIA >9,000 /uL (0-1359); URINE BILIRUBIN NEGATIVE (NEGATIVE); URINE COLOR YELLOW; URINE GLUCOSE (UA) NEGATIVE (NEGATIVE); URINE KETONE NEGATIVE (NEGATIVE); URINE LEUK ESTERASE 3+ (NEGATIVE); URINE NITRITE POSITIVE (NEGATIVE); URINE PROTEIN 1+ (NEGATIVE); URINE RBC 9 /uL (0-23.9); URINE UROBILINOGEN 0.2 mg/dL (0.2-1.0); URINE WBC 1340 /uL (0-25.8)
[2021-06-07] MEDS ORDERED: CEFTRIAXONE 1 GM in DEXTROSE 5%-WATER - 50 ML IVPB ONE (16:40)
[2021-06-07] MEDS ORDERED: CEFTRIAXONE 1 GM/50 ML BAG ONE (17:32)
[2021-06-07] MEDS ORDERED: SODIUM CHLORIDE 1,000 ML IV SCH ×2 (20:45)
[2021-06-07] MEDS ORDERED: MEROPENEM 1 GM VIAL (RESTRICTED TO ID) IVPB ONE (20:56)
[2021-06-07] MEDS ORDERED: VANCOMYCIN/WATER FOR INJ (PEG) 1,000 MG/200 ML BAG IVPB ONE (21:00)
[2021-06-07] MEDS ORDERED: ACETAMINOPHEN 325 MG TABLET (FP) PO PRN (21:06)
[2021-06-07] MEDS: MEROPENEM 1 GM in DEXTROSE 5%-WATER 100 ML IVPB SCH (21:46)
[2021-06-07] MEDS ORDERED: SENNOSIDES 8.6MG TABLET (FP) PO SCH (22:00)
[2021-06-07] MEDS ORDERED: ATORVASTATIN CA 20 MG TABLET (FP) PO SCH (22:00)
[2021-06-07] MEDS ORDERED: SENNOSIDES 8.6MG TABLET (FP) PO ONE (22:57)
[2021-06-07] MEDS ORDERED: ATORVASTATIN CA 20 MG TABLET (FP) ONE (22:57)
[2021-06-07] MEDS ORDERED: VANCOMYCIN 1 GRAM (PRE-DOCKED) 1,000 MG/250 ML BAG IVPB ONE (22:58)
[2021-06-07] MEDS ORDERED: BENZOCAINE/MENTH/CETYLPYRD CL 1 EACH LOZENGE MM ONE (23:02)
[2021-06-07] MEDS ORDERED: INSULIN SLIDING SCALE (NOVOLOG) 1 VIAL SQ ONE (23:08)
[2021-06-07] MEDS: INSULIN SLIDING SCALE (NOVOLOG) 1 VIAL SQ SCH (23:29)
[2021-06-07] MEDS: SENNOSIDES 8.6MG TABLET (FP) PO SCH (23:34)
[2021-06-08] MEDS: oxyCODONE HCL 5 MG TABLET PO PRN ×3 (01:37→22:37)
[2021-06-08] MEDS ORDERED: DEXTROSE 5%-WATER 100 ML IVPB ONE ×2 (02:38→09:26)
[2021-06-08] MEDS ORDERED: MEROPENEM 1 GM VIAL (RESTRICTED TO ID) IVPB ONE ×2 (02:38→09:25)
[2021-06-08] MEDS: MEROPENEM 1 GM in DEXTROSE 5%-WATER 100 ML IVPB SCH ×2 (02:41→10:15)
[2021-06-08] MEDS ORDERED: GABAPENTIN 100 MG CAPSULE PO ONE (03:29)
[2021-06-08] MEDS: INSULIN SLIDING SCALE (NOVOLOG) 1 VIAL SQ SCH ×4 (06:07→21:17)
[2021-06-08] MEDS ORDERED: LEVOTHYROXINE NA 100 MCG TABLET (FP) PO SCH (07:00)
[2021-06-08] MEDS ORDERED: SODIUM CHLORIDE 500 ML IV STA (09:06)
[2021-06-08] MEDS ORDERED: VANCOMYCIN 1 GM in D5W (PRE-DOCKED) 1,000 MG/250 ML IVPB SCH (10:00)
[2021-06-08] MEDS ORDERED: ENOXAPARIN NA (PORCINE) 40 MG/0.4 ML DISP.SYRIN SQ SCH (10:00)
[2021-06-08] MEDS: SENNOSIDES 8.6MG TABLET (FP) PO SCH ×2 (10:15→21:29)
[2021-06-08] MEDS ORDERED: INSULIN (NOVOLOG) ASPART 100 UNITS/ML 10ML VIAL ONE (11:32)
[2021-06-08 12:26] LABS: BASO % 0.5 % (0-2.0); EOS % 1.7 % (0-4.5); HEMATOCRIT 30.1 % (32.4-45.2); HEMOGLOBIN 9.9 GM/dL (10.7-15.3); LYMPH % 12.1 % (8-40); MCH 28.7 pg (25.7-33.7); MCHC 32.9 g/dl (32.0-36.0); MEAN CELL VOLUME 87.5 fl (80-96); NEUT % 80.7 % (42.8-82.8); RBC 3.44 M/mm3 (3.60-5.2); RDW 13.5 % (11.6-15.6); WHITE BLOOD COUNT 5.1 K/mm3 (4.0-10.0)
[2021-06-08 12:33] LABS: ALBUMIN 2.5 g/dl (3.4-5.0); BLOOD UREA NITROGEN 14.8 mg/dL (7-18); MAGNESIUM 1.7 mg/dL (1.8-2.4)
[2021-06-08 12:36] LABS: CREATININE 0.7 mg/dL (0.55-1.3); PHOSPHOROUS 2.2 mg/dL (2.5-4.9)
[2021-06-08 12:37] LABS: BILIRUBIN,TOTAL 0.2 mg/dL (0.2-1); TOT PROT 6.1 g/dl (6.4-8.2)
[2021-06-08] MEDS ORDERED: NAPH,MB-DB/K PH,MBDB POWDER PACKET PO ONE (16:19)
[2021-06-08] MEDS ORDERED: MAGNESIUM OXIDE 400 MG TABLET (FP) PO ONE (16:19)
[2021-06-08] MEDS: SODIUM CHLORIDE 1,000 ML IV SCH (16:27)
[2021-06-08] MEDS ORDERED: DEXTROSE 5%-WATER - 50 ML IVPB ONE (17:08)
[2021-06-08] MEDS ORDERED: PIPERACILLIN/TAZOBACTAM 3.375 GM VIAL IVPB ONE (17:08)
[2021-06-08] MEDS: PIPERACILLIN/TAZOB 3.375 GM 3.375 GM in DEXTROSE 5%-WATER - 50 ML IVPB SCH (17:16)
[2021-06-08] MEDS ORDERED: MEROPENEM 1 GM in DEXTROSE 5%-WATER 100 ML IVPB SCH (18:00)
[2021-06-08] MEDS: ATORVASTATIN CA 20 MG TABLET (FP) PO SCH (21:17)
[2021-06-08] MEDS: ACETAMINOPHEN 325 MG TABLET (FP) PO PRN (21:17)
[2021-06-08] MEDS ORDERED: ATORVASTATIN CA 20 MG TABLET (FP) PO SCH (22:00)
[2021-06-09] MEDS ORDERED: DEXTROSE 5%-WATER - 50 ML IVPB ONE ×3 (02:16→18:43)
[2021-06-09] MEDS ORDERED: PIPERACILLIN/TAZOBACTAM 3.375 GM VIAL IVPB ONE ×3 (02:16→18:43)
[2021-06-09] MEDS: PIPERACILLIN/TAZOB 3.375 GM 3.375 GM in DEXTROSE 5%-WATER - 50 ML IVPB SCH ×3 (02:21→18:46)
[2021-06-09] MEDS: INSULIN SLIDING SCALE (NOVOLOG) 1 VIAL SQ SCH ×4 (06:12→21:57)
[2021-06-09] MEDS: oxyCODONE HCL 5 MG TABLET PO PRN ×3 (06:13→21:42)
[2021-06-09] MEDS ORDERED: LEVOTHYROXINE NA 100 MCG TABLET (FP) PO SCH (07:00)
[2021-06-09 07:46] LABS: ALBUMIN 2.4 g/dl (3.4-5.0); BLOOD UREA NITROGEN 10.5 mg/dL (7-18)
[2021-06-09 07:49] LABS: BASO % 0.7 % (0-2.0); CREATININE 0.6 mg/dL (0.55-1.3); EOS % 3.4 % (0-4.5); HEMATOCRIT 31.7 % (32.4-45.2); HEMOGLOBIN 10.5 GM/dL (10.7-15.3); LYMPH % 25.1 % (8-40); MCH 29.3 pg (25.7-33.7); MCHC 33.3 g/dl (32.0-36.0); MEAN CELL VOLUME 87.9 fl (80-96); MEAN PLT VOLUME 9.5 fl (7.5-11.1); NEUT % 62.8 % (42.8-82.8); PHOSPHOROUS 1.8 mg/dL (2.5-4.9); RDW 13.4 % (11.6-15.6)
[2021-06-09 07:50] LABS: BILIRUBIN,TOTAL 0.2 mg/dL (0.2-1); TOT PROT 6.1 g/dl (6.4-8.2)
[2021-06-09 08:16] LABS: WHITE BLOOD COUNT 5.4 K/mm3 (4.0-10.0)
[2021-06-09 08:42] LABS: PLATELET ESTIMATE DECREASED
[2021-06-09] MEDS: SODIUM CHLORIDE 1,000 ML IV SCH (09:00)
[2021-06-09] MEDS: ACETAMINOPHEN 325 MG TABLET (FP) PO PRN (10:48)
[2021-06-09] MEDS: SENNOSIDES 8.6MG TABLET (FP) PO SCH ×2 (10:49→21:40)
[2021-06-09] MEDS: ENOXAPARIN NA (PORCINE) 40 MG/0.4 ML DISP.SYRIN SQ SCH (10:49)
[2021-06-09 15:03] VITALS: BMI 20.1
[2021-06-09] MEDS ORDERED: AMINO ACIDS/PROTEIN HYDROLYS 30 ML LIQUID.PKT PO SCH (17:30)
[2021-06-09] MEDS: AMINO ACIDS/PROTEIN HYDROLYS 30 ML LIQUID.PKT PO SCH (18:46)
[2021-06-09] MEDS: ATORVASTATIN CA 20 MG TABLET (FP) PO SCH (21:42)
[2021-06-10] MEDS ORDERED: DEXTROSE 5%-WATER - 50 ML IVPB ONE ×3 (01:39→18:11)
[2021-06-10] MEDS ORDERED: PIPERACILLIN/TAZOBACTAM 3.375 GM VIAL IVPB ONE ×3 (01:39→18:11)
[2021-06-10] MEDS: PIPERACILLIN/TAZOB 3.375 GM 3.375 GM in DEXTROSE 5%-WATER - 50 ML IVPB SCH ×3 (03:16→18:14)
[2021-06-10] MEDS: oxyCODONE HCL 5 MG TABLET PO PRN ×2 (05:45→16:26)
[2021-06-10] MEDS: INSULIN SLIDING SCALE (NOVOLOG) 1 VIAL SQ SCH ×4 (06:14→22:04)
[2021-06-10] MEDS: LEVOTHYROXINE NA 125 MCG TABLET (FP) PO SCH (06:14)
[2021-06-10 07:50] LABS: HEMATOCRIT 29.7 % (32.4-45.2); HEMOGLOBIN 9.7 GM/dL (10.7-15.3); MCH 28.8 pg (25.7-33.7); MCHC 32.7 g/dl (32.0-36.0); MEAN PLT VOLUME 9.7 fl (7.5-11.1); RBC 3.37 M/mm3 (3.60-5.2); RDW 13.6 % (11.6-15.6)
[2021-06-10 08:01] LABS: ALBUMIN 2.3 g/dl (3.4-5.0)
[2021-06-10 08:02] LABS: WHITE BLOOD COUNT 5.9 K/mm3 (4.0-10.0)
[2021-06-10 08:04] LABS: CREATININE 0.6 mg/dL (0.55-1.3)
[2021-06-10 08:05] LABS: BILIRUBIN,TOTAL 0.3 mg/dL (0.2-1); TOT PROT 5.9 g/dl (6.4-8.2)
[2021-06-10] MEDS: AMINO ACIDS/PROTEIN HYDROLYS 30 ML LIQUID.PKT PO SCH ×2 (09:29→18:14)
[2021-06-10] MEDS: ASCORBIC ACID 500 MG TABLET (FP) PO SCH (09:29)
[2021-06-10] MEDS: ENOXAPARIN NA (PORCINE) 40 MG/0.4 ML DISP.SYRIN SQ SCH (09:29)
[2021-06-10] MEDS: MULTIVITAMINS (DAILY MVI) TABLET (FP) PO SCH (09:29)
[2021-06-10] MEDS: SENNOSIDES 8.6MG TABLET (FP) PO SCH ×2 (09:30→22:03)
[2021-06-10 09:40] LABS: ANISOCYTOSIS 0; MACROCYTOSIS 0; PLATELET ESTIMATE NORMAL
[2021-06-10] MEDS ORDERED: MULTIVITAMINS (DAILY MVI) TABLET (FP) PO SCH (10:00)
[2021-06-10] MEDS ORDERED: ASCORBIC ACID 500 MG TABLET (FP) PO SCH (10:00)
[2021-06-10] MEDS: ACETAMINOPHEN 325 MG TABLET (FP) PO PRN (22:02)
[2021-06-10] MEDS: ATORVASTATIN CA 20 MG TABLET (FP) PO SCH (22:03)
[2021-06-11] MEDS: oxyCODONE HCL 5 MG TABLET PO PRN ×3 (00:03→18:53)
[2021-06-11] MEDS ORDERED: PIPERACILLIN/TAZOBACTAM 3.375 GM VIAL IVPB ONE ×3 (01:16→17:21)
[2021-06-11] MEDS ORDERED: DEXTROSE 5%-WATER - 50 ML IVPB ONE ×3 (01:16→17:22)
[2021-06-11] MEDS: PIPERACILLIN/TAZOB 3.375 GM 3.375 GM in DEXTROSE 5%-WATER - 50 ML IVPB SCH ×3 (02:00→17:32)
[2021-06-11] MEDS: LEVOTHYROXINE NA 125 MCG TABLET (FP) PO SCH (06:54)
[2021-06-11] MEDS: INSULIN SLIDING SCALE (NOVOLOG) 1 VIAL SQ SCH ×3 (06:54→17:57)
[2021-06-11 07:14] LABS: CALCIUM 7.9 mg/dL (8.5-10.1)
[2021-06-11 07:15] LABS: ALBUMIN 2.5 g/dl (3.4-5.0)
[2021-06-11 07:18] LABS: CREATININE 0.7 mg/dL (0.55-1.3)
[2021-06-11 07:19] LABS: BILIRUBIN,TOTAL 0.2 mg/dL (0.2-1); TOT PROT 6.3 g/dl (6.4-8.2)
[2021-06-11 07:28] LABS: BASO % 0.9 % (0-2.0); EOS % 2.5 % (0-4.5); HEMATOCRIT 31.5 % (32.4-45.2); HEMOGLOBIN 10.3 GM/dL (10.7-15.3); MCH 28.9 pg (25.7-33.7); MCHC 32.8 g/dl (32.0-36.0); MEAN CELL VOLUME 88.3 fl (80-96); NEUT % 56.6 % (42.8-82.8); RBC 3.56 M/mm3 (3.60-5.2); RDW 13.7 % (11.6-15.6)
[2021-06-11] MEDS: AMINO ACIDS/PROTEIN HYDROLYS 30 ML LIQUID.PKT PO SCH ×2 (09:41→17:35)
[2021-06-11] MEDS: SENNOSIDES 8.6MG TABLET (FP) PO SCH (09:42)
[2021-06-11] MEDS: ASCORBIC ACID 500 MG TABLET (FP) PO SCH (09:42)
[2021-06-11] MEDS: MULTIVITAMINS (DAILY MVI) TABLET (FP) PO SCH (09:42)
[2021-06-11] MEDS: ENOXAPARIN NA (PORCINE) 40 MG/0.4 ML DISP.SYRIN SQ SCH (09:43)
[2021-06-11 14:12] VITALS: BP 96/50; PULSE 58; TEMP 98.1
== END 2021-06-11 19:07 | disposition home or self-care (01) | DRG 871 ==
LOC: JER 13:11 → JERBED 16:53 → OBSVTOIN 20:33 → J8W 06-08 00:12 → J4S 06-08 18:32
PROVIDERS: ADMIT Internal Medicine
DX: A41.51 Sepsis due to Escherichia coli [E. coli] (principal); L89.214 Pressure ulcer of right hip, stage 4; G82.20 Paraplegia, unspecified; N39.0 Urinary tract infection, site not specified; Z16.12 Extended spectrum beta lactamase (ESBL) resistance; J45.909 Unspecified asthma, uncomplicated; E03.9 Hypothyroidism, unspecified; E11.9 Type 2 diabetes mellitus without complications; Z93.6 Other artificial openings of urinary tract status; I10 Essential (primary) hypertension; B96.20 Unspecified Escherichia coli [E. coli] as the cause of diseases classified elsewhere; K21.9 Gastro-esophageal reflux disease without esophagitis
CPT/HCPCS: 36415; 71045-TC-FY; 71250-TC; 80053; 81003; 82272; 82728; 82962; 83036; 83540; 83550; 83735; 84100; 84439; 84443; 84481; 84484; 85025; 87040; 87086; 87186; 87804; 93005; 93010; 99285-25; C9803; G0378; U0003; U0005

== ENCOUNTER 2022-11-08 08:23 | Inpatient (IN) | payer OTHER ==
[2022-11-08] MEDS ORDERED: PIPERACILLIN/TAZOB 4.5 GM 4.5 GM in DEXTROSE 5%-WATER 100 ML IVPB ONE ×2 (08:38→08:59)
[2022-11-08] MEDS ORDERED: LACTATED RINGERS SOLUTION 1000 ML INFUS.BAG IV ONE (08:38)
[2022-11-08] MEDS ORDERED: PIPERACILLIN/TAZOB 4.5 GM 4.5 GM/100 ML BAG IVPB ONE (09:07)
[2022-11-08 09:59] LABS: BASO % 0.2 % (0-2.0); EOS % 0.3 % (0-4.5); HEMATOCRIT 33.2 % (32.4-45.2); LYMPH % 9.8 % (8-40); MCHC 33.1 g/dl (32.0-36.0); MEAN CELL VOLUME 90.7 fl (80-96); MEAN PLT VOLUME 9.7 fl (7.5-11.1); MONO % 6.5 % (3.8-10.2); NEUT % 83.2 % (42.8-82.8); PLATELET COUNT 116 10^3/uL (134-434); RBC 3.66 M/mm3 (3.60-5.2); RDW 13.8 % (11.6-15.6); WHITE BLOOD COUNT 10.4 K/mm3 (4.0-10.0)
[2022-11-08 10:13] LABS: POTASSIUM 4.5 mmol/L (3.5-5.1)
[2022-11-08 10:15] LABS: ALBUMIN 2.6 g/dl (3.4-5.0); BLOOD UREA NITROGEN 26.7 mg/dL (7-18); CALCIUM 8.4 mg/dL (8.5-10.1)
[2022-11-08 10:18] LABS: CREATININE 0.8 mg/dL (0.55-1.3)
[2022-11-08 10:20] LABS: BILIRUBIN,TOTAL 0.2 mg/dL (0.2-1); TOT PROT 5.7 g/dl (6.4-8.2)
[2022-11-08 10:21] LABS: EPI CELLS >36 /uL (0-25.1); HYALINE CASTS 30 /uL (0-3.1); URINE APPEARANCE TURBID; URINE BACTERIA >9,000 /uL (0-1359); URINE BILIRUBIN NEGATIVE (NEGATIVE); URINE COLOR YELLOW; URINE GLUCOSE (UA) NEGATIVE (NEGATIVE); URINE KETONE NEGATIVE (NEGATIVE); URINE LEUK ESTERASE 3+ (NEGATIVE); URINE NITRITE POSITIVE (NEGATIVE); URINE PROTEIN 3+ (NEGATIVE); URINE RBC 184 /uL (0-23.9); URINE UROBILINOGEN 0.2 mg/dL (0.2-1.0); URINE WBC 12701 /uL (0-25.8)
[2022-11-08] MEDS ORDERED: SODIUM CHLORIDE 0.9% 500 ML INFUS.BAG IV ONE (10:31)
[2022-11-08 10:39] LABS: LACTIC ACID 2.2 mmol/L (0.4-2.0)
[2022-11-08 12:59] LABS: VENOUS O2 SATURATION 75.3 % (70-80); VENOUS PCO2 44.2 mmHg (38-52); VENOUS PH 7.268 (7.310-7.410)
[2022-11-08 13:09] LABS: INR 1.62 (0.83-1.09); PROTHROMBIN TIME (PATIENT) 18.7 SEC (9.7-13.0)
[2022-11-08 13:12] LABS: ACTIVATED PTT 31.8 SECONDS (25.2-36.5)
[2022-11-08] MEDS ORDERED: PATIENT'S OWN MEDICATION (NON-FORMULARY) (Oxycodone Hcl/Acetaminophen [Oxycodone-Acetamino PO PRN (13:33)
[2022-11-08] MEDS: LACTATED RINGERS SOLUTION 1,000 ML IV SCH (13:49)
[2022-11-08] MEDS ORDERED: POLYETHYLENE GLYCOL (HEALTHYLAX) 3350 17 GM PACKET PO PRN (13:51)
[2022-11-08] MEDS ORDERED: oxyCODONE HCL 5 MG TABLET ONE (17:26)
[2022-11-08] MEDS: oxyCODONE HCL 5 MG TABLET PO PRN ×2 (17:31→23:34)
[2022-11-08] MEDS: INSULIN SLIDING SCALE (NOVOLOG) 1 VIAL SQ SCH ×2 (17:32→22:59)
[2022-11-08] MEDS: MEROPENEM 1 GM in DEXTROSE 5%-WATER 100 ML IVPB SCH (19:02)
[2022-11-08] MEDS: diazePAM 5 MG TABLET PO PRN (20:51)
[2022-11-08] MEDS: ACETAMINOPHEN 325 MG TABLET (FP) PO PRN (20:52)
[2022-11-09] MEDS: MEROPENEM 1 GM in DEXTROSE 5%-WATER 100 ML IVPB SCH ×3 (02:00→17:11)
[2022-11-09] MEDS: oxyCODONE HCL 5 MG TABLET PO PRN ×3 (06:21→22:04)
[2022-11-09] MEDS: LEVOTHYROXINE NA 88 MCG TABLET (FP) PO SCH (06:22)
[2022-11-09] MEDS: INSULIN SLIDING SCALE (NOVOLOG) 1 VIAL SQ SCH ×4 (06:40→22:05)
[2022-11-09 08:15] LABS: BASO % 0.3 % (0-2.0); EOS % 3.5 % (0-4.5); HEMATOCRIT 28.9 % (32.4-45.2); HEMOGLOBIN 9.7 GM/dL (10.7-15.3); LYMPH % 18.7 % (8-40); MCH 29.8 pg (25.7-33.7); MCHC 33.5 g/dl (32.0-36.0); MEAN CELL VOLUME 88.8 fl (80-96); MEAN PLT VOLUME 9.6 fl (7.5-11.1); MONO % 5.9 % (3.8-10.2); NEUT % 71.6 % (42.8-82.8); PLATELET COUNT 47 10^3/uL (134-434); RBC 3.26 M/mm3 (3.60-5.2); RDW 13.8 % (11.6-15.6); WHITE BLOOD COUNT 6.4 K/mm3 (4.0-10.0)
[2022-11-09 08:33] LABS: POTASSIUM 3.7 mmol/L (3.5-5.1)
[2022-11-09 08:36] LABS: CALCIUM 7.9 mg/dL (8.5-10.1)
[2022-11-09 08:37] LABS: ALBUMIN 2.6 g/dl (3.4-5.0); MAGNESIUM 1.7 mg/dL (1.8-2.4)
[2022-11-09 08:40] LABS: CREATININE 0.5 mg/dL (0.55-1.3)
[2022-11-09 08:41] LABS: BILIRUBIN,TOTAL 0.3 mg/dL (0.2-1)
[2022-11-09 08:42] LABS: TOT PROT 5.6 g/dl (6.4-8.2)
[2022-11-09] MEDS: LACTATED RINGERS SOLUTION 1,000 ML IV SCH (10:31)
[2022-11-09] MEDS: ACETAMINOPHEN 325 MG TABLET (FP) PO PRN (12:56)
[2022-11-10] MEDS: MEROPENEM 1 GM in DEXTROSE 5%-WATER 100 ML IVPB SCH ×3 (01:33→17:56)
[2022-11-10] MEDS: ACETAMINOPHEN 325 MG TABLET (FP) PO PRN ×2 (02:08→10:12)
[2022-11-10] MEDS: LEVOTHYROXINE NA 88 MCG TABLET (FP) PO SCH (06:00)
[2022-11-10] MEDS: INSULIN SLIDING SCALE (NOVOLOG) 1 VIAL SQ SCH ×4 (06:01→21:52)
[2022-11-10] MEDS: oxyCODONE HCL 5 MG TABLET PO PRN ×3 (08:20→21:52)
[2022-11-10 13:19] LABS: BASO % 0.3 % (0-2.0); EOS % 2.6 % (0-4.5); HEMATOCRIT 33.2 % (32.4-45.2); HEMOGLOBIN 10.7 GM/dL (10.7-15.3); MCH 29.3 pg (25.7-33.7); MCHC 32.3 g/dl (32.0-36.0); MEAN CELL VOLUME 90.8 fl (80-96); MEAN PLT VOLUME 9.1 fl (7.5-11.1); MONO % 6.5 % (3.8-10.2); NEUT % 67.6 % (42.8-82.8); PLATELET COUNT 95 10^3/uL (134-434); RBC 3.66 M/mm3 (3.60-5.2); RDW 13.4 % (11.6-15.6); WHITE BLOOD COUNT 5.8 K/mm3 (4.0-10.0)
[2022-11-10] MEDS ORDERED: SENNOSIDES 8.6MG TABLET (FP) PO PRN (14:57)
[2022-11-10] MEDS: diazePAM 5 MG TABLET PO PRN (21:53)
[2022-11-11] MEDS: MEROPENEM 1 GM in DEXTROSE 5%-WATER 100 ML IVPB SCH ×2 (02:01→10:34)
[2022-11-11] MEDS: oxyCODONE HCL 5 MG TABLET PO PRN ×3 (06:29→21:47)
[2022-11-11] MEDS: LEVOTHYROXINE NA 88 MCG TABLET (FP) PO SCH (06:29)
[2022-11-11] MEDS: INSULIN SLIDING SCALE (NOVOLOG) 1 VIAL SQ SCH ×4 (06:30→21:26)
[2022-11-11 08:38] LABS: BASO % 0.4 % (0-2.0); EOS % 2.9 % (0-4.5); HEMATOCRIT 34.5 % (32.4-45.2); HEMOGLOBIN 11.3 GM/dL (10.7-15.3); MCH 29.2 pg (25.7-33.7); MCHC 32.9 g/dl (32.0-36.0); MEAN CELL VOLUME 88.7 fl (80-96); MEAN PLT VOLUME 10.1 fl (7.5-11.1); MONO % 6.4 % (3.8-10.2); NEUT % 68.3 % (42.8-82.8); PLATELET COUNT 83 10^3/uL (134-434); RBC 3.89 M/mm3 (3.60-5.2); RDW 13.3 % (11.6-15.6); WHITE BLOOD COUNT 5.7 K/mm3 (4.0-10.0)
[2022-11-11 09:02] LABS: POTASSIUM 3.9 mmol/L (3.5-5.1)
[2022-11-11 09:10] LABS: ALBUMIN 2.8 g/dl (3.4-5.0); BLOOD UREA NITROGEN 8.8 mg/dL (7-18); CALCIUM 8.9 mg/dL (8.5-10.1)
[2022-11-11 09:11] LABS: MAGNESIUM 1.6 mg/dL (1.8-2.4)
[2022-11-11 09:13] LABS: CREATININE 0.4 mg/dL (0.55-1.3); PHOSPHOROUS 2.1 mg/dL (2.5-4.9)
[2022-11-11 09:15] LABS: BILIRUBIN,TOTAL 0.4 mg/dL (0.2-1); TOT PROT 6.6 g/dl (6.4-8.2)
[2022-11-11] MEDS ORDERED: POTASSIUM PHOSPHATE 30 MM in SODIUM CHLORIDE 500 ML IVPB ONE (13:30)
[2022-11-11] MEDS ORDERED: MAGNESIUM SULF 50% (8.12 MEQ/2 ML-1 GM VIAL) IVPB ONE (13:54)
[2022-11-11 14:59] VITALS: BMI 19.8
[2022-11-11] MEDS: AMINO ACIDS/PROTEIN HYDROLYS 30 ML LIQUID.PKT PO SCH (18:42)
[2022-11-11] MEDS: diazePAM 5 MG TABLET PO PRN (21:47)
[2022-11-12] MEDS: MEROPENEM 1 GM in DEXTROSE 5%-WATER 100 ML IVPB SCH ×2 (04:00→09:14)
[2022-11-12] MEDS: LEVOTHYROXINE NA 88 MCG TABLET (FP) PO SCH (06:07)
[2022-11-12] MEDS: oxyCODONE HCL 5 MG TABLET PO PRN (06:07)
[2022-11-12] MEDS: INSULIN SLIDING SCALE (NOVOLOG) 1 VIAL SQ SCH (06:08)
[2022-11-12] MEDS: AMINO ACIDS/PROTEIN HYDROLYS 30 ML LIQUID.PKT PO SCH (09:13)
[2022-11-12] MEDS ORDERED: MULTIVITAMINS (DAILY MVI) TABLET (FP) PO SCH (10:00)
[2022-11-12 10:41] VITALS: BP 124/70; TEMP 97.8
[2022-11-12 10:52] LABS: HEMATOCRIT 32.8 % (32.4-45.2); MCH 29.6 pg (25.7-33.7); MCHC 33.4 g/dl (32.0-36.0); MEAN CELL VOLUME 88.5 fl (80-96); MEAN PLT VOLUME 9.2 fl (7.5-11.1); PLATELET COUNT 147 10^3/uL (134-434); RDW 13.5 % (11.6-15.6); WHITE BLOOD COUNT 5.4 K/mm3 (4.0-10.0)
[2022-11-12 11:06] VITALS: PULSE 70; RESP 20
[2022-11-12 11:28] LABS: POTASSIUM 4.4 mmol/L (3.5-5.1)
[2022-11-12 11:31] LABS: ALBUMIN 2.6 g/dl (3.4-5.0); CALCIUM 8.5 mg/dL (8.5-10.1)
[2022-11-12 11:32] LABS: BLOOD UREA NITROGEN 8.6 mg/dL (7-18); MAGNESIUM 2.1 mg/dL (1.8-2.4)
[2022-11-12 11:34] LABS: CREATININE 0.4 mg/dL (0.55-1.3); PHOSPHOROUS 3.7 mg/dL (2.5-4.9)
[2022-11-12 11:35] LABS: BILIRUBIN,TOTAL 0.1 mg/dL (0.2-1); TOT PROT 6.1 g/dl (6.4-8.2)
== END 2022-11-12 11:24 | disposition home or self-care (01) | DRG 689 ==
LOC: JER 08:23 → JERBED 12:39 → OBSVTOIN 16:58 → J4W 17:46
PROVIDERS: ADMIT Internal Medicine; ATTEND Internal Medicine
DX: N39.0 Urinary tract infection, site not specified (principal); G93.41 Metabolic encephalopathy; L89.214 Pressure ulcer of right hip, stage 4; L89.314 Pressure ulcer of right buttock, stage 4; G82.20 Paraplegia, unspecified; D69.6 Thrombocytopenia, unspecified; E11.9 Type 2 diabetes mellitus without complications; E03.9 Hypothyroidism, unspecified
CPT/HCPCS: 0241U-QW; 36415; 70450-TC; 71045-TC-FY; 74176-TC; 80053; 81003; 82803; 82962; 83605; 83735; 84100; 84484; 85025; 85027; 85610; 85730; 86850; 86900; 86901; 87040; 87086; 87186; 93005; 93010; 99291; G0378